=== PATIENT | male | born 1950 | race Caucasian/White ===

== ENCOUNTER 2016-09-14 22:57 | Inpatient (IN) | payer OTHER ==
[~2016-09-14] VITALS: Ht 152.4 cm; Wt 83.5 kg
[~2016-09-14 22:57] MED LIST: ALBU1AER9 INH; AMIT25TA9 PO; ASPCH81X PO; ATOR10TA82 PO; CLC100 PO; FENT12DI3 TD; FLUT0.15 INH; INSDGIPEN SC; INSU100I SC; LISI-461 PO; LORA10TA51 PO; METO25TA56 PO; OXYC-57 PO; POLY335019 PO; PRED1SUS3 OPR; SENN-61 PO; TIOTCAP INH
[2016-09-15] MEDS ORDERED: MoRPHine SULFATE 4 MG/ML 1 ML CARP\\VIAL IV STA ×2 (00:04→02:56)
[2016-09-15] MEDS ORDERED: ONDANSETRON INJ 2 MG/ML 2 ML VIAL IV STA (00:04)
[2016-09-15] MEDS ORDERED: SODIUM CHLORIDE 0.9% 1000ML 1,000 ML IV STA (00:04)
[2016-09-15] MEDS ORDERED: OPTIRAY 320 IV PRN (00:15)
[2016-09-15 00:43] LABS: BASO % 0.3 %; BASO ABS # 0.01 K/uL (0-0.2); COMPLETE YES; HEMATOCRIT 31.1 % (42-52); LYMPH % 14.2 %; LYMPH ABS # 0.56 K/uL (1.2-3.4); MEAN CELL VOLUME 96.3 fL (80-100); MEAN CORPUSCULAR HEMOGLOBIN 31.9 pg (25-34); MEAN CORPUSCULAR HGB CONC 33.1 g/dl (32-36); MEAN PLATELET VOLUME 10.1 fL (7.4-10.4); MONO % 13.7 %; NEUT % 70.8 %; PLATELET COUNT 233 K/uL (130-400); RED BLOOD COUNT 3.23 M/uL (4.7-6.1); WHITE BLOOD COUNT 3.93 K/uL (4.8-10.8)
[2016-09-15 00:55] LABS: INR 2.2 (0.9-1.1); PARTIAL THROMBOPLASTIN RATIO 1.2; PROTHROMBIN TIME (PATIENT) 24.4 SECONDS (9.0-12.0)
[2016-09-15 01:10] LABS: BUN/CREATININE RATIO 26.4 (10-20); CALCIUM 8.9 mg/dl (8.5-10.1); MAGNESIUM 2.2 mg/dl (1.8-2.4); POTASSIUM 3.8 mmol/L (3.5-5.1)
[2016-09-15 01:12] LABS: ALB/GLOB RATIO 0.9 (0.9-2)
[2016-09-15] MEDS ORDERED: POLYETHYLENE (MIRALAX) 17 GM PACK PO PRN (05:15)
[2016-09-15] MEDS ORDERED: ALUMINUM/MAGNESIUM/SIMETH (MAALOX MAX) 30 ML UDC PO PRN (05:15)
[2016-09-15] MEDS ORDERED: ONDANSETRON INJ 2 MG/ML 2 ML VIAL IV PRN (05:15)
[2016-09-15] MEDS ORDERED: ACETAMINOPHEN 325 MG TAB PO PRN (05:15)
--- NOTE | 2016-09-15 05:39 | History and Physical ---
History & Physical Date & Time of Service: Sep 15, 2016 at 05:21 Chief Complaint: B/L Leg Pain, Worse On Right Primary Care Physician: Eric Yepez M.D. History of Present Illness Source: patient, family 65 y/o M Hx met prostate CA, COPD, DM, AF . Pt developed pain and swelling in his RLE and presented for evaluation. AN ultrasound confirmed an extensive RLE DVT extending into the R femoral vein. He denies SOB above baseline or CP. The pt is on 3mg Coumadin daily and his INR is therapeutic at 2.2 at the time of admission. He states that he was recently in [place] having returned one week prior which may have placed him at further risk of DVT. It is unknown if his INR was subtherapeutic recently. The pts [place] is limited, family were present to translate at the time of admission. Past Medical/Surgical History Medical Problems: (1) Acute kidney injury Status: Resolved (2) Anemia Status: Chronic (3) COPD exacerbation Status: Resolved (4) Diabetes mellitus Status: Chronic (5) Emphysema lung Status: Chronic (6) Facial edema Status: Resolved (7) Hematuria Status: Resolved (8) Hypomagnesemia Status: Resolved (9) Metastatic cancer of the prostate Status: Chronic (10) Non-st elevation (nstemi) myocardial infarction Status: Resolved (11) Prostate cancer Permanent Comment: DIAGNOSIS: Metastatic prostate cancer to bone TREATMENT: 1. Previous history of radiation therapy done at other facilities for metastatic disease 2. Xofigo administration - 1/6 cycles completed. Status: Chronic (12) Prostate cancer metastatic to multiple sites Status: Chronic (13) Pyelonephritis Status: Resolved (14) Sepsis Status: Resolved (15) V-tach Status: Resolved 16) PAF Family History No pertinent family history COuld not provide details Social History Smoking Status: Former Smoker Drug Use: none Marital Status: Housing status: lives with family Occupational Status: retired Immunizations History of Influenza Vaccine: Yes History of Tetanus Vaccine?: UNKNOWN History of Pneumococcal: No History of Hepatitis B Vaccine: No Allergies Coded Allergies: No Known Allergies (Unverified , 09/14/16) Home Medications Scheduled Atorvastatin (Lipitor), 10 MG PO HS Insulin Glargine (Lantus Solostar), 20 UNITS SC BID Insulin Lispro (Human) (Humalog), 5 ML SC AC Lisinopril (Zestril), 10 MG PO DAILY Metoprolol Tartrate (Lopressor) (Lopressor), 25 MG PO QPM Metoprolol Tartrate (Lopressor) (Lopressor), 50 MG PO QAM Scheduled PRN Oxycodone/Acetaminophen 5MG/325MG (Percocet 5MG/325MG), 1 TABLETS PO Q4H PRN for Pain Polyethylene Glycol 3350 (Miralax), 17 GM PO BID PRN for Constipation Physical Exam Vital Signs Date Time Temp Pulse Resp B/P Pulse Ox O2 Delivery O2 Flow Rate FiO2 09/15/16 03:15 93 09/15/16 03:11 95 09/15/16 02:29 67 18 152/92 98 Room Air 09/15/16 00:15 97 Room Air 09/14/16 23:08 36.9 106 20 155/111 97 Room Air General Appearance: WD/WN, no apparent distress Head: normocephalic, atraumatic Eyes: normal inspection, PERRL, EOMI ENT: normal ENT inspection, pharynx normal Neck: supple, no JVD Respiratory/Chest: chest non-tender, lungs clear, normal breath sounds, no respiratory distress, no accessory muscle use Cardiovascular: no gallop, no JVD, no murmur, normal peripheral pulses, + irregularly irregular Abdomen/GI: normal bowel sounds, non tender, soft Back: normal inspection Extremities/Musculoskelatal: + pertinent finding (Mild RLE swelling without pitting) Neurologic/Psych: social research assistant II-XII nml as tested, no motor/sensory deficits, alert, normal mood/affect, normal reflexes, oriented x 3 Skin: normal color, warm/dry, no rash Diagnostics Laboratory Results Results Past 24 Hours Test 09/15/16 00:30 Range/Units White Blood Count 3.93 4.8-10.8 K/uL Red Blood Count 3.23 4.7-6.1 M/uL Hemoglobin 10.3 14.0-18.0 g/dL Hematocrit 31.1 42-52 % Mean Corpuscular Volume 96.3 80-100 fL Mean Corpuscular Hemoglobin 31.9 25-34 pg Mean Corpuscular Hemoglobin Concent 33.1 32-36 g/dl Platelet Count 233 130-400 K/uL Mean Platelet Volume 10.1 7.4-10.4 fL Neutrophils (%) (Auto) 70.8 % Lymphocytes (%) (Auto) 14.2 % Monocytes (%) (Auto) 13.7 % Eosinophils (%) (Auto) 1.0 % Basophils (%) (Auto) 0.3 % Neutrophils # (Auto) 2.78 1.4-6.5 K/uL Lymphocytes # (Auto) 0.56 1.2-3.4 K/uL Monocytes # (Auto) 0.54 0.11-0.59 K/uL Eosinophils # (Auto) 0.04 0-0.5 K/uL Basophils # (Auto) 0.01 0-0.2 K/uL RDW Standard Deviation 49.5 36.4-46.3 fL RDW Coefficient of Variation 14.0 11.5-14.5 % Immature Granulocyte % (Auto) 0.0 % Immature Granulocyte # (Auto) 0.00 0.00-0.02 K/uL Prothrombin Time 24.4 9.0-12.0 SECONDS Prothromb Time International Ratio 2.2 0.9-1.1 Activated Partial Thromboplast Time 29.9 21.0-31.0 SECONDS Partial Thromboplastin Ratio 1.2 Sodium Level 143 136-145 mmol/L Potassium Level 3.8 3.5-5.1 mmol/L Chloride Level 111 98-107 mmol/L Carbon Dioxide Level 24 21-32 mmol/L Anion Gap 8.0 3-11 mmol/L Blood Urea Nitrogen 26 7-18 mg/dl Creatinine 1.00 0.60-1.40 mg/dl Est Creatinine Clear Calc Drug Dose 82.5 ml/min Estimated GFR () 91.1 Estimated GFR (Non- 78.6 BUN/Creatinine Ratio 26.4 10-20 Random Glucose 210 70-99 mg/dl Calcium Level 8.9 8.5-10.1 mg/dl Magnesium Level 2.2 1.8-2.4 mg/dl Total Bilirubin 0.2 0.2-1 mg/dl Aspartate Amino Transf (AST/SGOT) 29 15-37 U/L Alanine Aminotransferase (ALT/SGPT) 18 12-78 U/L Alkaline Phosphatase 308 45-117 U/L Total Protein 6.9 6.4-8.2 gm/dl Albumin 3.3 3.4-5.0 gm/dl Globulin 3.6 2.5-4.0 gm/dl Albumin/Globulin Ratio 0.9 0.9-2 Diagnostic Radiology + RLE DVT - popliteal - extending into femoral Impression Assessment and Plan 65 y/o M Hx met prostate CA, COPD, DM, AF . Pt developed pain and swelling in his RLE and presented for evaluation. AN ultrasound confirmed an extensive RLE DVT extending into the R femoral vein. He denies SOB above baseline or CP. The pt is on 3mg Coumadin daily and his INR is therapeutic at 2.2 at the time of admission. He states that he was recently in [place] having returned one week prior which may have placed him at further risk of DVT. It is unknown if his INR was subtherapeutic recently. 1) DVT - possibly breakthrough due to underlying CA - it is difficult to discern how long the pt has been on Coumadin as he was not sure and it does not appear on his previous med list. We cannot know also if was recently subtherapeutic. We are expecting a call from his to provide additional details. We will place him on a Heparin infusion and consult hematology. 2) COPD - cont inhalers - no current exacerbation 3) DM - sliding scale provided 4) Prostate CA with bone mets - treated with chemo and previously radiation - f/ u with H/O Full code - full dose Heparin Total time for this admit including review of labs/meds/records/imaging - discussion with pt and ER MD - 38 min Level of Care Med/Surg Resuscitation Status FULL RESUSCITATION VTE Prophylaxis VTE Risk Assessment Done? Y/N: Yes Risk Level: High Given or contraindicated: Other Anticoagulation
[2016-09-15] MEDS ORDERED: DEXTROSE 50% 50 ML SYR IV PRN (06:45)
[2016-09-15] MEDS ORDERED: GLUCOSE 40% GEL 15 GM TUBE PO PRN (06:45)
[2016-09-15] MEDS ORDERED: GLUCOSE 10 TABS/TUBE PO PRN (06:45)
[2016-09-15] MEDS ORDERED: GLUCAGON FOR INJ 1 MG VIAL SQ PRN (06:45)
[2016-09-15 07:14] VITALS: BP 148/84; PULSE 94; TEMP 36.4; O2SAT 97; BMI 30.0
--- NOTE | 2016-09-15 07:22 | DIAGNOSTIC IMAGING REPORT ---
BILATERAL LOWER EXTREMITY VENOUS DOPPLER HISTORY: Leg pain - RIGHT greater than left COMPARISON STUDY: None. FINDINGS: Near occlusive thrombus within the right superficial femoral vein to the popliteal vein. The remaining bilateral lower extremity venous systems are patent. A complex 5.9 x 1.2 x 1.7 cm right popliteal cyst. IMPRESSION: 1. Right lower extremity DVT. 2. No DVT within the left lower extremity. Electronically signed by: Landon Whittington M.D. 09/15/2016 7:20 AM Dictated Date/Time: 09/15/2016 7:18 AM
--- NOTE | 2016-09-15 07:36 | EMERGENCY ROOM VISIT NOTE ---
History First contact with patient: 23:22 Chief Complaint: LEG PAIN,LEG INJURY Stated Complaint: DVT History of Present Illness The patient is a 65 year old male who presents to the Emergency Department by private vehicle with his family for evaluation of his bilateral lower extremity pain with focus to the RIGHT versus left leg. The patient has a significant past medical history for metastatic prostate cancer with large metastases to the lumbar spine. He was currently treated with chemotherapy as well as radiation therapy here. He followed with Dr. Drew and Dr. Zimmerman. Most recently, the patient traveled to [place] where he was treated with chemotherapy. Her returned approximately 3 weeks ago and has had progressively worsening pain to the bilateral lower extremities. He had worsening swelling to the RIGHT lower extremity today. He complains of pain to the RIGHT calf. He is worsening pain with range of motion. He denies any numbness or tingling to the toes. He rates his current discomfort as a 10/10. He has used his oral morphine as well as oxycodone without relief of symptoms. Patient denies any chest pain, palpitations, shortness of breath, abdominal pain, or history of DVT. Son is present and acts as wood shop teacher. Review of Systems A complete 10-point Review of Systems was discussed with the patient, with pertinent positives and negatives listed in the History of Present Illness. All remaining Review of Systems questions can be considered negative unless otherwise specified. Past Medical/Surgical History Medical Problems: (1) Acute kidney injury (2) Anemia (3) COPD exacerbation (4) Diabetes mellitus (5) DVT (deep venous thrombosis) (6) Emphysema lung (7) Facial edema (8) Hematuria (9) Hypomagnesemia (10) Metastatic cancer (11) Non-st elevation (nstemi) myocardial infarction (12) Prostate cancer (13) Prostate cancer metastatic to multiple sites (14) Pyelonephritis (15) Sepsis (16) V-tach Family History No pertinent family history Social History Smoking Status: Former Smoker Alcohol Use: none Drug Use: none Marital Status: Housing Status: lives with family Occupation Status: retired Current/Historical Medications Scheduled Atorvastatin (Lipitor), 10 MG PO HS Enoxaparin (Lovenox), 120 MG SQ DAILY Insulin Glargine (Lantus Solostar), 20 UNITS SC BID Insulin Lispro (Human) (Humalog), 5 ML SC AC Lisinopril (Zestril), 10 MG PO DAILY Metoprolol Tartrate (Lopressor) (Lopressor), 25 MG PO QPM Metoprolol Tartrate (Lopressor) (Lopressor), 50 MG PO QAM Warfarin Sod (Coumadin), 5 MG PO DAILY Scheduled PRN Oxycodone/Acetaminophen 5MG/325MG (Percocet 5MG/325MG), 1 TABLETS PO Q4H PRN for Pain Oxycodone/Acetaminophen 5MG/325MG (Percocet 5MG/325MG), 1 TABLET PO Q4H PRN for Pain Polyethylene (Miralax), 17 GM PO DAILY PRN for Constipation Polyethylene Glycol 3350 (Miralax), 17 GM PO BID PRN for Constipation Allergies Coded Allergies: No Known Allergies (Unverified , 09/14/16) Physical Exam Vital Signs Date Time Temp Pulse Resp B/P Pulse Ox O2 Delivery O2 Flow Rate FiO2 09/15/16 03:15 93 09/15/16 03:11 95 09/15/16 02:29 67 18 152/92 98 Room Air 09/15/16 00:15 97 Room Air 09/14/16 23:08 36.9 106 20 155/111 97 Room Air Pain Rating (0-10): 10 Physical Exam VITAL SIGNS - Vital signs and nursing notes were reviewed. GENERAL - 65-year-old male appearing his stated age who is in no acute distress. Communicates well with provider and answers questions appropriately. LUNGS - Chest wall symmetric without accessory muscle use, intercostals retractions, or central cyanosis. Normal vesicular breath sounds CTA B/L. No wheezes, rales, or rhonchi appreciated. CARDIAC - RRR with S1/S2. No murmur, rubs, or gallops appreciated. No reproducible tenderness to palpation appreciated over the anterior chest wall. ABDOMEN - Abdominal contour obese and without pulsations or visible masses. BS normoactive all four quadrants. No tenderness, palpable masses, hepatosplenomegaly, or ascites noted. BACK - no step-off deformities noted to the lumbar spinous processes. Mild tenderness to palpation noted to the mid lumbar paraspinal musculature. EXTREMITIES - Moderate pretibial edema present RIGHT greater than left. +3/5 radial and dorsalis pedis pulses palpated throughout. +4/5 strength noted in UE/ LE bilaterally. NEUROLOGIC - Cranial nerves II through XII grossly intact. Sensory intact to light touch throughout. PSYCH - Son acts as wood shop teacher. A&Ox3 and cooperates fully with examiner. Pt is very pleasant and interacts well with examiner. Medical Decision & Procedures ER Provider Diagnostic Interpretation: Radiological imaging and reports were reviewed by myself. Radiologist's Interpretation as follows: CT SCAN OF THE LUMBAR SPINE COMBO CLINICAL HISTORY: Low back pain. Prostate cancer history. COMPARISON STUDY: Nuclear bone scan dated 03/27/2015. Abdominal CT dated 03/27/2015. TECHNIQUE: Before and following the IV administration of 93 cc of Optiray 320, CT scan of the lumbar spine is performed from the lower thoracic spine to the sacrum. Images reviewed in the axial, sagittal, coronal planes. IV contrast was administered without complication. CT DOSE: 1551.57 mGy.cm FINDINGS: The skeletal structures are osteopenic. There is evidence of diffuse osteoblastic metastatic disease identified throughout all of the visualized osseous structures. This has not appreciably changed from the [address] scan. Vertebral body height and alignment are maintained. There is no evidence of pathologic fracture throughout the visualized structures. There is a right-sided pars defect at L5. The transverse and spinous processes appear intact. The intervertebral disc spaces appear preserved. There is a large disc herniation identified at L2-L3. This causes severe acquired compromise of the central canal. There is also a large posterior disc bulge at L5-S1 that is eccentric to the right. There is no evidence of tumor encroaching upon the central canal. The paraspinous soft tissues are normal as imaged. There is asymmetric cortical atrophy of the left kidney as compared to the right. A 5.5 cm cyst arises from the upper pole of the left kidney. Additional smaller cysts are noted bilaterally. No retroperitoneal lymphadenopathy is identified. Tortuous venous structures are present in the retrocrural space. There is moderate atherosclerotic calcification of the abdominal aorta. The visualized sacrum and bony pelvis are intact. IMPRESSION: 1. Findings are consistent with diffuse/widespread osteoblastic metastatic disease. This is not appreciably changed in distribution from the 03/27/2015 examination. 2. There is a disc herniation at L2-L3 which causes significant acquired compromise of the central canal. 3. There is no evidence of pathologic fracture. 4. Additional findings as above. BILATERAL LOWER EXTREMITY VENOUS DOPPLER HISTORY: Leg pain - RIGHT greater than left COMPARISON STUDY: None. FINDINGS: Near occlusive thrombus within the right superficial femoral vein to the popliteal vein. The remaining bilateral lower extremity venous systems are patent. A complex 5.9 x 1.2 x 1.7 cm right popliteal cyst. IMPRESSION: 1. Right lower extremity DVT. 2. No DVT within the left lower extremity. Laboratory Results 09/15/16 00:30 Test 09/15/16 00:30 Anion Gap 8.0 mmol/L (3-11) BUN/Creatinine Ratio 26.4 (10-20) Calcium Level 8.9 mg/dl (8.5-10.1) Magnesium Level 2.2 mg/dl (1.8-2.4) Total Bilirubin 0.2 mg/dl (0.2-1) Aspartate Amino Transf (AST/SGOT) 29 U/L (15-37) Alanine Aminotransferase (ALT/SGPT) 18 U/L (12-78) Alkaline Phosphatase 308 U/L (45-117) Total Protein 6.9 gm/dl (6.4-8.2) Albumin 3.3 gm/dl (3.4-5.0) Globulin 3.6 gm/dl (2.5-4.0) Albumin/Globulin Ratio 0.9 (0.9-2) Medications Administered Medications (Trade) Dose Ordered Sig/Derek Route Start Time Stop Time Status Last Admin Dose Admin Sodium Chloride (Nss 1000ml) 1,000 ml @ 125 mls/hr Q8H STAT IV 09/15/16 00:04 09/15/16 06:26 DC 09/15/16 00:42 125 MLS/HR Morphine Sulfate (MoRPHine SULFATE INJ) 4 mg NOW STAT IV 09/15/16 00:04 09/15/16 00:08 DC 09/15/16 00:41 4 MG Ondansetron HCl (Zofran Inj) 4 mg NOW STAT IV 09/15/16 00:04 09/15/16 00:08 DC 09/15/16 00:41 4 MG Morphine Sulfate (MoRPHine SULFATE INJ) 4 mg NOW STAT IV 09/15/16 02:56 09/15/16 02:57 DC 09/15/16 03:06 4 MG ED Course Patient was seen and evaluated by myself. Labs were drawn, saline lock in place. The patient was hydrated with normal saline. He received 4 mg morphine and 4 mg Zofran intravenously for pain. Ultrasounds of the bilateral lower extremities were obtained. CT of the lumbar spine with and without contrast was ordered. Laboratory results demonstrate mild leukopenia. The patient isn' t anemic. There are no significant electrolyte abnormalities. Alkaline phosphatase is elevated. Ultrasound consistent with acute extensive DVT. CT demonstrates the above-mentioned findings. The patient's pain was controlled with additional 4 mg morphine. Case was discussed with hospitalist who agrees to admit the patient for further evaluation and management. Patient admitted in stable. Medical Decision Given the patient's presentation and stated complaints, I did elect to perform the above-mentioned workup. The patient presents with worsening pain to the RIGHT lower extremity. He is had recent travel. He has a significant history of prostate cancer as well. The patient has an acute extensive DVT to the RIGHT lower extremity. This is especially concerning as the patient is currently anticoagulated with Coumadin and his INR is therapeutic. His pain was adequately controlled the emergency department. He will be admitted to hospitalist service for further evaluation and management. Patient admitted in stable condition. In the evaluation and treatment of this patient, the following differential diagnoses were considered: Cellulitis, lumbar radiculopathy, worsening CVA, PAD , amongst others. Impression Primary Impression: Deep vein thrombosis Departure Information Dispostion Admitted as an inpatient Condition FAIR Prescriptions Oxycodone/Acetaminophen 5MG/325MG (PERCOCET 5MG/325MG) Tab 1 TABLET PO Q4H Y for Pain, #30 TAB PAIN Prov: Lili Rivera MD 09/21/16 Warfarin Sod (Coumadin) 5 Mg Tab 5 MG PO DAILY for 30 Days, #30 TABS Prov: Conner Thompson D.O. 09/21/16 Polyethylene (Miralax) 17 Gm Pow 17 GM PO DAILY Y for Constipation, #30 PKT Prov: Conner Thompson D.O. 09/21/16 Enoxaparin (LOVENOX) 120 Mg/0.8 Ml Inj 120 MG SQ DAILY for 3 Days, #3 VIAL Prov: Conner Thompson D.O. 09/21/16 Referrals Eric Yepez M.D. (PCP) Forms HOME CARE DOCUMENTATION FORM, IMPORTANT VISIT INFORMATION Patient Instructions [facility] Problem Qualifiers Primary Impression: Deep vein thrombosis DVT location: lower extremity Affected thrombotic vein of extremity: unspecified lower extremity distal vein Laterality: right Chronicity: acute Qualified Codes: I82.4Z1 - Acute embolism and thrombosis of unspecified deep veins of right distal lower extremity
[2016-09-15 08:06] VITALS: BP 105/67; PULSE 101; TEMP 36.3; O2SAT 95
--- NOTE | 2016-09-15 08:24 | DIAGNOSTIC IMAGING REPORT ---
CT SCAN OF THE LUMBAR SPINE COMBO CLINICAL HISTORY: Low back pain. Prostate cancer history. COMPARISON STUDY: Nuclear bone scan dated 03/27/2015. Abdominal CT dated 03/27/2015. TECHNIQUE: Before and following the IV administration of 93 cc of Optiray 320, CT scan of the lumbar spine is performed from the lower thoracic spine to the sacrum. Images reviewed in the axial, sagittal, coronal planes. IV contrast was administered without complication. CT DOSE: 1551.57 mGy.cm FINDINGS: The skeletal structures are osteopenic. There is evidence of diffuse osteoblastic metastatic disease identified throughout all of the visualized osseous structures. This has not appreciably changed from the [address] scan. Vertebral body height and alignment are maintained. There is no evidence of pathologic fracture throughout the visualized structures. There is a right-sided pars defect at L5. The transverse and spinous processes appear intact. The intervertebral disc spaces appear preserved. There is a large disc herniation identified at L2-L3. This causes severe acquired compromise of the central canal. There is also a large posterior disc bulge at L5-S1 that is eccentric to the right. There is no evidence of tumor encroaching upon the central canal. The paraspinous soft tissues are normal as imaged. There is asymmetric cortical atrophy of the left kidney as compared to the right. A 5.5 cm cyst arises from the upper pole of the left kidney. Additional smaller cysts are noted bilaterally. No retroperitoneal lymphadenopathy is identified. Tortuous venous structures are present in the retrocrural space. There is moderate atherosclerotic calcification of the abdominal aorta. The visualized sacrum and bony pelvis are intact. IMPRESSION: 1. Findings are consistent with diffuse/widespread osteoblastic metastatic disease. This has not appreciably changed in distribution from the 03/27/2015 examination. 2. There is a disc herniation at L2-L3 which causes significant acquired compromise of the central canal. 3. There is no evidence of pathologic fracture. 4. Additional findings as above. Dictated: 09/15/2016 7:23 AM Transcribed: 09/15/2016 8:23 AM [facility] Electronically signed by: Eros Segovia M.D. 09/15/2016 8:29 AM Dictated Date/Time: 09/15/2016 7:23 AM
[2016-09-15] MEDS: INSULIN ASPART 100 UNITS/ML 3 ML PEN SC SCH ×4 (08:27→19:49)
[2016-09-15] MEDS: LISINOPRIL 10 MG TAB PO SCH (09:47)
[2016-09-15] MEDS: METOPROLOL TARTRATE 50 MG TAB PO SCH (09:47)
[2016-09-15] MEDS: MAGNESIUM HYDROXIDE SUSP 30 ML UDC PO PRN (09:50)
[2016-09-15] MEDS: INSULIN GLARGINE SOLOSTAR 100 UNITS/ML 3 ML PEN SC SCH ×2 (09:52→19:53)
[2016-09-15] MEDS: HEPARIN 25,000 UNIT/500ML D5W 500 ML IV PRN ×2 (09:55→17:30)
[2016-09-15 16:22] VITALS: BP 131/83; PULSE 85; TEMP 36.4; O2SAT 97
[2016-09-15 16:26] LABS: PARTIAL THROMBOPLASTIN RATIO 2.8
--- NOTE | 2016-09-15 16:48 | Oncology Consultation ---
Oncology/Heme Consultation Date of Consultation: Sep 15, 2016. Attending Physician: Yehuda Macario MD Reason for Consultation: History of prostate carcinoma DVT History of Present Illness is a 65-year-old [place] that is known to our clinic. He was last seen in our clinic in September of last year. Our records reflect that he has a history of prostate carcinoma that dates back a number of years. I records reflect that in fact he was diagnosed 15 years ago. At diagnosis or shortly afterwards he had a prostatectomy and orchiectomy. He had a disease-free interval until 2010. His PSA was quite high and he was placed on anti-hormonal therapy. He has been on various anti-hormonal therapies for quite some time. When last seen in our clinic he was treated with repeated courses of Taxotere and was headed for treatment with radium. His disease from what I recall was primarily if not entirely bone oriented. He is a difficult historian due to language barriers but he states that recently he had trouble moving his legs and he received radiation therapy well and [place]. He recalls I believe finishing the irradiation about 3 weeks ago. [place] is now [place]. He complained of leg discomfort and was found to have a DVT. He has been on Coumadin but was mildly subtherapeutic with an INR of 2.2. From what I can gather he is now here to stay in [place] with relatives. He states he has been receiving some form of chemotherapy well and [place] up until the time of receiving radiation therapy. He is uncertain as to what that might have been. Family History No pertinent family history Social History Smoking Status: Former Smoker Drug Use: none Marital Status: Housing Status: lives with family Occupation Status: retired Allergies Coded Allergies: No Known Allergies (Unverified , 09/14/16) Home Medications Scheduled Atorvastatin (Lipitor), 10 MG PO HS Insulin Glargine (Lantus Solostar), 20 UNITS SC BID Insulin Lispro (Human) (Humalog), 5 ML SC AC Lisinopril (Zestril), 10 MG PO DAILY Metoprolol Tartrate (Lopressor) (Lopressor), 25 MG PO QPM Metoprolol Tartrate (Lopressor) (Lopressor), 50 MG PO QAM Scheduled PRN Oxycodone/Acetaminophen 5MG/325MG (Percocet 5MG/325MG), 1 TABLETS PO Q4H PRN for Pain Polyethylene Glycol 3350 (Miralax), 17 GM PO BID PRN for Constipation Current Inpatient Medications Current Inpatient Medications Medications (Trade) Dose Ordered Sig/Derek Route Start Time Stop Time Status Last Admin Dose Admin Ioversol (Optiray 320) 100 ml UD PRN IV 09/15/16 00:15 09/19/16 00:14 Atorvastatin Calcium (Lipitor Tab) 10 mg HS PO 09/15/16 21:00 10/15/16 20:59 Insulin Glargine (Lantus Solostar Pen) 20 unit BID SC 09/15/16 08:00 10/15/16 08:59 09/15/16 09:52 20 UNIT Lisinopril (Zestril Tab) 10 mg DAILY PO 09/15/16 08:00 10/15/16 08:59 09/15/16 09:47 10 MG Metoprolol Tartrate (Lopressor Tab) 25 mg QPM PO 09/15/16 21:00 10/15/16 20:59 Metoprolol Tartrate (Lopressor Tab) 50 mg QAM PO 09/15/16 08:00 10/15/16 08:59 09/15/16 09:47 50 MG Oxycodone/ Acetaminophen (Percocet 5-325mg Tab) 1 tab Q4H PRN PO 09/15/16 05:15 09/29/16 05:14 Acetaminophen (Tylenol Tab) 650 mg Q4H PRN PO 09/15/16 05:15 10/15/16 05:14 Al Hydrox/Mg Hydrox/Simethicone (Maalox Max Susp) 15 ml Q4H PRN PO 09/15/16 05:15 10/15/16 05:14 Magnesium Hydroxide (Milk Of Magnesia Susp) 30 ml Q6H PRN PO 09/15/16 05:15 10/15/16 05:14 09/15/16 09:50 30 ML Polyethylene (Miralax Powder Packet) 17 gm DAILY PRN PO 09/15/16 05:15 10/15/16 05:14 Zolpidem Tartrate (Ambien Tab) 5 mg HSZ PRN PO 09/15/16 05:15 10/15/16 05:14 Ondansetron HCl (Zofran Inj) 4 mg Q6H PRN IV 09/15/16 05:15 10/15/16 05:14 Insulin Aspart (novoLOG ASPART) SLIDING SCALE G... ACHS SC 09/15/16 06:30 10/15/16 06:59 09/15/16 13:46 1 UNITS Glucose (Glucose 40% Gel) 15-30 GRAMS 15 GRAMS... UD PRN PO 09/15/16 06:45 10/15/16 06:44 Glucose (Glucose Chew Tab) 4-8 Tablets 4 Tabl... UD PRN PO 09/15/16 06:45 10/15/16 06:44 Dextrose (Dextrose 50% 50ML Syringe) 25-50ML OF 50% DW IV FOR... UD PRN IV 09/15/16 06:45 10/15/16 06:44 Glucagon 1 mg 1 mg UD PRN SQ 09/15/16 06:45 10/15/16 06:44 Heparin Sodium/ Dextrose (Heparin 25,000 Unit/500ml D5W) 500 ml @ 29 mls/hr [id number] PRN IV 09/15/16 09:30 10/15/16 09:29 09/15/16 09:55 29 MLS/HR Review of Systems It is difficult to extract what would be considered an accurate review of systems due to language barrier Constitutional: Negative for weight loss, night sweats, or fever Eyes: Negative for event change of vision ENT: Negative for epistaxis, nasal discharge, sore throat, or deafness Cardiovascular: Negative for chest pain, palpitations, dizziness, diaphoresis Respiratory: Negative for new shortness of breath,hemoptysis, or purulent cough Gastrointestinal: Negative for diarrhea, hematemesis, melena, nausea, vomiting , or dyspepsia Integumentary (skin): Negative for rash or jaundice discoloration Genitourinary: Negative for urinary frequency, hematuria, or dysuria Neurological: Negative for weakness, seizure activity, headache, or dizziness Lymphatic/Hematologic: Negative for petechiae, bleeding or new adenopathy Musculoskeletal: Negative for new joint or back pain Allergic/Immunologic: Negative for unusual rash or pruritis. Physical Exam Date Time Temp Pulse Resp B/P Pulse Ox O2 Delivery O2 Flow Rate FiO2 09/15/16 16:22 36.4 85 20 131/83 97 Room Air 4/13/17 15:56 Room Air 09/15/16 09:50 Room Air 09/15/16 08:06 36.3 101 20 105/67 95 Room Air 09/15/16 07:14 36.4 94 16 148/84 97 Room Air 09/15/16 06:16 78 22 139/89 96 09/15/16 03:15 93 09/15/16 03:11 95 09/15/16 02:29 67 18 152/92 98 Room Air 09/15/16 00:15 97 Room Air 09/14/16 23:08 36.9 106 20 155/111 97 Room Air Constitutional: vitals are stable. Eyes: Eyes are FRANNY EOMI without conjuctival erythema or icterus. ENT: External examination was negative for masses. Neck: Negative for masses or palpable thyromegaly Respiratory: Lung sounds were generally clear bilaterally Cardiovascular: Heart was RRR without significant murmur, gallops aoe rubs Gastrointestinal: No palpable hepatic or splenomegaly. The abdomen was soft with normal bowel sounds. Lymphatic system: there was no palpable peripheral lymphadenopathy Musculoskeletal System: The musculoskeletal system seemed concordant with age. Skin: The skin was negative for jaundice. Neurologic exam: The exam was negative for any focal findings. His toes are downgoing although he did have some difficulty moving his lower extremities, nevertheless he was able to move them. Psychiatric exam: Was essentially negative with normal mood and effect. Extremities: Negative for edema or erythema Laboratory Results Last 24 Hours Test 09/15/16 00:30 09/15/16 06:33 09/15/16 07:53 09/15/16 11:32 White Blood Count 3.93 K/uL Red Blood Count 3.23 M/uL Hemoglobin 10.3 g/dL Hematocrit 31.1 % Mean Corpuscular Volume 96.3 fL Mean Corpuscular Hemoglobin 31.9 pg Mean Corpuscular Hemoglobin Concent 33.1 g/dl Platelet Count 233 K/uL Mean Platelet Volume 10.1 fL Neutrophils (%) (Auto) 70.8 % Lymphocytes (%) (Auto) 14.2 % Monocytes (%) (Auto) 13.7 % Eosinophils (%) (Auto) 1.0 % Basophils (%) (Auto) 0.3 % Neutrophils # (Auto) 2.78 K/uL Lymphocytes # (Auto) 0.56 K/uL Monocytes # (Auto) 0.54 K/uL Eosinophils # (Auto) 0.04 K/uL Basophils # (Auto) 0.01 K/uL RDW Standard Deviation 49.5 fL RDW Coefficient of Variation 14.0 % Immature Granulocyte % (Auto) 0.0 % Immature Granulocyte # (Auto) 0.00 K/uL Prothrombin Time 24.4 SECONDS Prothromb Time International Ratio 2.2 Activated Partial Thromboplast Time 29.9 SECONDS Partial Thromboplastin Ratio 1.2 Sodium Level 143 mmol/L Potassium Level 3.8 mmol/L Chloride Level 111 mmol/L Carbon Dioxide Level 24 mmol/L Anion Gap 8.0 mmol/L Blood Urea Nitrogen 26 mg/dl Creatinine 1.00 mg/dl Est Creatinine Clear Calc Drug Dose 82.5 ml/min Estimated GFR () 91.1 Estimated GFR (Non- 78.6 BUN/Creatinine Ratio 26.4 Random Glucose 210 mg/dl Calcium Level 8.9 mg/dl Magnesium Level 2.2 mg/dl Total Bilirubin 0.2 mg/dl Aspartate Amino Transf (AST/SGOT) 29 U/L Alanine Aminotransferase (ALT/SGPT) 18 U/L Alkaline Phosphatase 308 U/L Total Protein 6.9 gm/dl Albumin 3.3 gm/dl Globulin 3.6 gm/dl Albumin/Globulin Ratio 0.9 Bedside Glucose 91 mg/dl 155 mg/dl 169 mg/dl Test 09/15/16 15:53 Assessment & Plan 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 I believe he should be treated with Lovenox perhaps one and a half milligrams per kilogram SQ daily going forward. I tried to reach his [id number] who in the past has been a great source as to how he is been treated in [place]. She is also served as a good communicator to this patient. It's unclear as to what medicine he may have been receiving as chemotherapy recently in [place]. However it is certainly clear that he has received a number of treatments both antiandrogen as well as traditional systemic therapy with little doubt that his disease has progressed. He would be a candidate I believe for hospice. I tried to explain this to Mr. Li with little success and hopefully his [id number] relatives (that he now lives with here in [place]) will be helpful with that message. I will just check a PSA as well as an LDH. Again I believe would be warranted to place him on therapeutic doses of Lovenox perhaps 1 1/2 mg daily (lifelong) as his anticoagulant..
[2016-09-15] MEDS: ATORVASTATIN 10 MG TAB PO SCH (19:51)
[2016-09-15] MEDS: METOPROLOL TARTRATE 25 MG TAB PO SCH (19:52)
[2016-09-15] MEDS: ZOLPIDEM TARTRATE 5 MG TAB PO PRN (23:21)
[2016-09-15] MEDS: OXYCODONE/ACETAMINOPHEN 5-325 TAB PO PRN (23:21)
[2016-09-15 23:50] LABS: PARTIAL THROMBOPLASTIN RATIO 3.3
[2016-09-16 00:08] VITALS: BP 109/73; PULSE 82; TEMP 36.3; O2SAT 95
[2016-09-16] MEDS: HEPARIN 25,000 UNIT/500ML D5W 500 ML IV PRN (00:49)
[2016-09-16 04:36] VITALS: BP 122/82; PULSE 83; TEMP 36.6; O2SAT 97
[2016-09-16] MEDS: INSULIN ASPART 100 UNITS/ML 3 ML PEN SC SCH ×4 (06:30→20:53)
[2016-09-16 06:31] VITALS: BMI 27.8
[2016-09-16 07:18] LABS: BASO % 0.3 %; BASO ABS # 0.01 K/uL (0-0.2); COMPLETE YES; EOS % 1.8 %; HEMATOCRIT 30.7 % (42-52); LYMPH % 16.8 %; LYMPH ABS # 0.65 K/uL (1.2-3.4); MEAN CELL VOLUME 95.3 fL (80-100); MEAN CORPUSCULAR HEMOGLOBIN 31.4 pg (25-34); MEAN CORPUSCULAR HGB CONC 32.9 g/dl (32-36); MEAN PLATELET VOLUME 10.3 fL (7.4-10.4); MONO % 9.8 %; NEUT % 71.3 %; PLATELET COUNT 231 K/uL (130-400); RED BLOOD COUNT 3.22 M/uL (4.7-6.1); WHITE BLOOD COUNT 3.88 K/uL (4.8-10.8)
[2016-09-16 07:45] LABS: PARTIAL THROMBOPLASTIN RATIO 2.5
[2016-09-16] MEDS: METOPROLOL TARTRATE 50 MG TAB PO SCH (08:37)
[2016-09-16] MEDS: LISINOPRIL 10 MG TAB PO SCH (08:37)
[2016-09-16] MEDS: INSULIN GLARGINE SOLOSTAR 100 UNITS/ML 3 ML PEN SC SCH ×2 (09:01→20:53)
[2016-09-16] MEDS ORDERED: ENOXAPARIN 1.5 MG/KG SQ ONE (10:22)
--- NOTE | 2016-09-16 10:48 | Hematology/Oncology Prog Note ---
Hematology/Onc Progress Note Date of Service Sep 16, 2016. Diagnoses Progressive refractory castrate resistant prostate carcinoma Medications Medications Administered Medications (Trade) Dose Ordered Sig/Derek Route Start Time Stop Time Status Last Admin Dose Admin Sodium Chloride (Nss 1000ml) 1,000 ml @ 125 mls/hr Q8H STAT IV 09/15/16 00:04 09/15/16 06:26 DC 09/15/16 00:42 125 MLS/HR Morphine Sulfate (MoRPHine SULFATE INJ) 4 mg NOW STAT IV 09/15/16 00:04 09/15/16 00:08 DC 09/15/16 00:41 4 MG Ondansetron HCl (Zofran Inj) 4 mg NOW STAT IV 09/15/16 00:04 09/15/16 00:08 DC 09/15/16 00:41 4 MG Morphine Sulfate (MoRPHine SULFATE INJ) 4 mg NOW STAT IV 09/15/16 02:56 09/15/16 02:57 DC 09/15/16 03:06 4 MG Atorvastatin Calcium (Lipitor Tab) 10 mg HS PO 09/15/16 21:00 10/15/16 20:59 09/15/16 19:51 10 MG Insulin Glargine (Lantus Solostar Pen) 20 unit BID SC 09/15/16 08:00 10/15/16 08:59 09/16/16 09:01 20 UNIT Lisinopril (Zestril Tab) 10 mg DAILY PO 09/15/16 08:00 10/15/16 08:59 09/16/16 08:37 10 MG Metoprolol Tartrate (Lopressor Tab) 25 mg QPM PO 09/15/16 21:00 10/15/16 20:59 09/15/16 19:52 25 MG Metoprolol Tartrate (Lopressor Tab) 50 mg QAM PO 09/15/16 08:00 10/15/16 08:59 09/16/16 08:37 50 MG Oxycodone/ Acetaminophen (Percocet 5-325mg Tab) 1 tab Q4H PRN PO 09/15/16 05:15 09/29/16 05:14 09/15/16 23:21 1 TAB Magnesium Hydroxide (Milk Of Magnesia Susp) 30 ml Q6H PRN PO 09/15/16 05:15 5/13/17 05:14 09/15/16 09:50 30 ML Zolpidem Tartrate (Ambien Tab) 5 mg HSZ PRN PO 09/15/16 05:15 10/15/16 05:14 09/15/16 23:21 5 MG Insulin Aspart SLIDING SCALE G... ACHS SC 09/15/16 06:30 10/15/16 06:59 09/15/16 13:46 1 UNITS Heparin Sodium/ Dextrose (Heparin 25,000 Unit/500ml D5W) 500 ml @ 24 mls/hr [id number] PRN IV 09/15/16 09:30 09/16/16 10:22 DC 09/16/16 00:49 27 MLS/HR Subjective He denies any new symptoms. Pain seems fairly well under control. Review of Systems: A complete review of systems is difficult to obtain due to language barrier Constitutional: Negative for, night sweats, or fever Eyes: Negative for event change of vision ENT: Negative for epistaxis, nasal discharge, sore throat, or deafness Cardiovascular: Negative for chest pain, palpitations, dizziness, diaphoresis Respiratory: Negative for new shortness of breath,hemoptysis, or purulent cough Gastrointestinal: Negative for diarrhea, hematemesis, melena, nausea, vomiting , or dyspepsia Integumentary (skin): Negative for rash or jaundice discoloration Genitourinary: Negative for urinary frequency, hematuria, or dysuria Neurological: Negative for weakness, seizure activity, headache, or dizziness Lymphatic/Hematologic: Negative for petechiae, bleeding or new adenopathy Musculoskeletal: Negative for new joint or back pain Allergic/Immunologic: Negative for unusual rash or pruritis. Vital Signs Vital Signs Past 12 Hours Date Time Temp Pulse Resp B/P Pulse Ox O2 Delivery O2 Flow Rate FiO2 09/16/16 08:00 Room Air 09/16/16 04:36 36.6 83 20 122/82 97 Room Air 09/16/16 00:08 36.3 82 18 109/73 95 Room Air 09/16/16 00:00 Room Air Physical Exam Constitutional: vitals are stable. Eyes: Eyes are FRANNY EOMI without conjuctival erythema or icterus. ENT: External examination was negative for masses. Neck: Negative for masses or palpable thyromegaly Respiratory: Lung sounds were generally clear bilaterally Cardiovascular: Heart was RRR without significant murmur, gallops aoe rubs Gastrointestinal: No palpable hepatic or splenomegaly. The abdomen was soft with normal bowel sounds. Lymphatic system: there was no palpable peripheral lymphadenopathy Musculoskeletal System: The musculoskeletal system seemed concordant with age. Skin: The skin was negative for jaundice. Neurologic exam: He is able to move his lower extremities although they do appear weak. Psychiatric exam: Was essentially negative with normal mood and effect. Extremities: Negative for edema Laboratory Last 24 Hours Test 09/15/16 11:32 09/15/16 15:53 09/15/16 16:38 09/15/16 17:35 Bedside Glucose 169 mg/dl 129 mg/dl Activated Partial Thromboplast Time 73.4 SECONDS Partial Thromboplastin Ratio 2.8 Lactate Dehydrogenase 270 U/L Prostate Specific Antigen 3190.000 ng/ml Test 09/15/16 19:43 09/15/16 23:11 09/16/16 06:35 09/16/16 08:41 Bedside Glucose 153 mg/dl 142 mg/dl Activated Partial Thromboplast Time 86.7 SECONDS 66.1 SECONDS Partial Thromboplastin Ratio 3.3 2.5 White Blood Count 3.88 K/uL Red Blood Count 3.22 M/uL Hemoglobin 10.1 g/dL Hematocrit 30.7 % Mean Corpuscular Volume 95.3 fL Mean Corpuscular Hemoglobin 31.4 pg Mean Corpuscular Hemoglobin Concent 32.9 g/dl Platelet Count 231 K/uL Mean Platelet Volume 10.3 fL Neutrophils (%) (Auto) 71.3 % Lymphocytes (%) (Auto) 16.8 % Monocytes (%) (Auto) 9.8 % Eosinophils (%) (Auto) 1.8 % Basophils (%) (Auto) 0.3 % Neutrophils # (Auto) 2.77 K/uL Lymphocytes # (Auto) 0.65 K/uL Monocytes # (Auto) 0.38 K/uL Eosinophils # (Auto) 0.07 K/uL Basophils # (Auto) 0.01 K/uL RDW Standard Deviation 48.4 fL RDW Coefficient of Variation 13.8 % Immature Granulocyte % (Auto) 0.0 % Immature Granulocyte # (Auto) 0.00 K/uL Assessment & Plan Castrate resistant refractory progressive prostate carcinoma. His PSA is now over 3000. Last year around this time it was recorded at around 600. He has had many courses of various chemotherapy regimens as well as anti-androgen therapy. He's also had radiation treatments. No further systemic therapy is planned or will be helpful. This is the message that I gave to him today. I believe palliative consult should be done and eventually hospice placement. I have been trying to reach his [id number] both yesterday and today to review this. I' m never quite sure when I speak with the patient as to whether he understands. He is always wanted further therapy but my message today had to be that there was really no further therapy beyond just supportive care. Would make the transition however to once daily Lovenox (1.5 mg/kg per day) and away from IV heparin. He will need to be on this lifelong. I will continue to try to reach the relatives who live close by. Please consult palliative care. Please note we had a follow-up conversation a family conference at 7 PM this evening. The son reviewed with me his father's story in regards to his deep venous thrombosis. He also reviewed to some extent his father's history of prostate cancer. I then stated that his disease has clearly progressed. I pointed out that the problem that led to trouble walking and required radiation to his lower back was indicative of progression of disease. I stated that the PSA that we just did is about 5 times higher than where we left off in September of last year. Fortunately pain has not been an issue. I stressed repeatedly in a very angela way that further chemotherapy would not be helpful and more damaging. I believe the son and his understand. I'm not certain however that the patient understands. I recommended hospice in described that service to them. They seemed reluctant to proceed with hospice but at least palliative care should be involved and I believe that some sort of age at home will be necessary. The patient apparently ambulates around the house with the aid of a walker but I stressed that this is about as good as it is going to be and there will be a gradual decline. The idea of an IVC filter was discussed in I believe that an insertion of an IV filter would be warranted at this juncture. They recalled his PSA responding to radiation treatments from last year (he previously received from here [email or web address]). I stated that I doubt that that would be very helpful at this juncture but we will last Dr. Chichi Zimmerman to comment. In summary we will ask for an IVC filter placement (Dr. Birch). The patient will be placed on one a day Lovenox at 1.5 mg/kg SQ. Dr. Chichi Zimmerman will be consulted to see if it would be reasonable or even possible to retreat with radium. No further systemic chemotherapy is planned. Palliative consult will be placed in anticipation of hospice care in the near future.
[2016-09-16] MEDS ORDERED: ENOXAPARIN 150 MG/1ML SYR SQ SCH (11:00)
[2016-09-16 16:18] VITALS: BP 117/79; PULSE 65; TEMP 36.4; O2SAT 98
[2016-09-16 19:57] VITALS: BP 119/77; PULSE 79; TEMP 36.7; O2SAT 94
[2016-09-16] MEDS: ZOLPIDEM TARTRATE 5 MG TAB PO PRN (20:47)
[2016-09-16] MEDS: ATORVASTATIN 10 MG TAB PO SCH (20:48)
[2016-09-16] MEDS: METOPROLOL TARTRATE 25 MG TAB PO SCH (20:48)
[2016-09-16] MEDS: OXYCODONE/ACETAMINOPHEN 5-325 TAB PO PRN (20:48)
--- NOTE | 2016-09-16 21:12 | Hospitalist Progress Note ---
Hospitalist Progress Note Date of Service Sep 16, 2016. Subjective case reviewed in great detail with his son and daughter in law at bedside. His clot is probably not new, or acute on chronic disease. He had a DVT in [place] prior to coming. Patient has no complaints today. Objective Vital Signs Date Time Temp Pulse Resp B/P Pulse Ox O2 Delivery O2 Flow Rate FiO2 09/16/16 19:57 36.7 79 18 119/77 94 Room Air 09/16/16 16:18 36.4 65 18 117/79 98 Room Air 09/16/16 16:00 Room Air 09/16/16 08:00 Room Air 09/16/16 04:36 36.6 83 20 122/82 97 Room Air 09/16/16 00:08 36.3 82 18 109/73 95 Room Air 09/16/16 00:00 Room Air Physical Exam General Appearance: no apparent distress Eyes: normal inspection Neck: trachea midline Respiratory/Chest: lungs clear Cardiovascular: regular rate, rhythm Abdomen: normal bowel sounds Neurologic/Psychiatric: alert Laboratory Results Last 24 Hours Test 09/15/16 23:11 09/16/16 06:35 09/16/16 08:41 09/16/16 11:58 Activated Partial Thromboplast Time 86.7 SECONDS 66.1 SECONDS Partial Thromboplastin Ratio 3.3 2.5 White Blood Count 3.88 K/uL Red Blood Count 3.22 M/uL Hemoglobin 10.1 g/dL Hematocrit 30.7 % Mean Corpuscular Volume 95.3 fL Mean Corpuscular Hemoglobin 31.4 pg Mean Corpuscular Hemoglobin Concent 32.9 g/dl Platelet Count 231 K/uL Mean Platelet Volume 10.3 fL Neutrophils (%) (Auto) 71.3 % Lymphocytes (%) (Auto) 16.8 % Monocytes (%) (Auto) 9.8 % Eosinophils (%) (Auto) 1.8 % Basophils (%) (Auto) 0.3 % Neutrophils # (Auto) 2.77 K/uL Lymphocytes # (Auto) 0.65 K/uL Monocytes # (Auto) 0.38 K/uL Eosinophils # (Auto) 0.07 K/uL Basophils # (Auto) 0.01 K/uL RDW Standard Deviation 48.4 fL RDW Coefficient of Variation 13.8 % Immature Granulocyte % (Auto) 0.0 % Immature Granulocyte # (Auto) 0.00 K/uL Bedside Glucose 142 mg/dl 142 mg/dl Test 09/16/16 17:00 09/16/16 20:32 Bedside Glucose 105 mg/dl 106 mg/dl Assessment and Plan (1) Prostate cancer metastatic to multiple sites Assessment & Plan: Family meeting conducted with patient's son, daughter in law and the patient with Dr. Drew. He has end stage prostate cancer. There are no further chemotherapy options available. He is a candidate for hospice care. He does have the possibility of additional treatments with the radiation oncologist. He was responding well to his last treatments which he states were supposed to have a total of 6 treatments and he only received 2. Radiation Oncology will be consulted to answer the question of is there additional therapy which could be of benefit? A vascular surgeon will be consulted to place a eliceo filter. Hospice was then explained in detail to the family. Once he has no additional radiation tx's left, than hospice is the best treatment option for him and his family. Advanced care planning and the need for advanced care planning, ie living will, poa, were discussed. The conversation project was recommended as an excellent source. For uatsdin reasons, the patient would need to continue if there was a small chance. There are two important parts to the question should we code a patient. The first question is does the patient want the medical procedure done. The second question is does the doctor feel it would be of benefit. Both should be true in order to proceed. I explained that I do not believe that trying to bring the patient back to life would work, and would only increase pain and suffering. My hope is that the patient makes it long enough to enter hospice care where this conversation, or the outcome of allowing a natural will make sense to all involved. I shared this information with the patient's family and they were grateful for the information. (2) DVT (deep venous thrombosis) (3) Diabetes mellitus
[2016-09-16 23:57] VITALS: BP 101/63; PULSE 85; TEMP 36.7; O2SAT 98
[2016-09-17 06:35] LABS: CREATININE 0.94 mg/dl (0.60-1.40)
[2016-09-17 06:47] VITALS: BMI 36.7
[2016-09-17 07:59] VITALS: BP 103/70; PULSE 87; TEMP 36.5; O2SAT 96
[2016-09-17] MEDS ORDERED: ENOXAPARIN 1.5 MG/KG SQ SCH ×2 (08:00)
[2016-09-17] MEDS ORDERED: ENOXAPARIN 120 MG/0.8 ML SYR SQ SCH (08:00)
[2016-09-17] MEDS: ENOXAPARIN 120 MG/0.8 ML SYR SQ SCH (08:48)
[2016-09-17] MEDS: METOPROLOL TARTRATE 50 MG TAB PO SCH (08:48)
[2016-09-17] MEDS: LISINOPRIL 10 MG TAB PO SCH (08:49)
[2016-09-17] MEDS: INSULIN ASPART 100 UNITS/ML 3 ML PEN SC SCH ×4 (08:49→21:00)
[2016-09-17] MEDS: INSULIN GLARGINE SOLOSTAR 100 UNITS/ML 3 ML PEN SC SCH ×2 (09:09→21:20)
[2016-09-17 10:21] LABS: PARTIAL THROMBOPLASTIN RATIO 1.3
[2016-09-17 11:49] VITALS: BP 101/64; PULSE 68; TEMP 36.6; O2SAT 98
[2016-09-17 15:14] VITALS: BP 111/71; PULSE 76; TEMP 36.6; O2SAT 96
--- NOTE | 2016-09-17 17:17 | Hospitalist Progress Note ---
Hospitalist Progress Note Date of Service Sep 17, 2016. Subjective Pt evaluation today including: conversation w/ patient, conversation w/ family , physical exam Pain: no pain patient without complaints no chest pain no shortness of breath All Other Systems: Reviewed and Negative Medications Medications (Trade) Dose Ordered Sig/Derek Route Start Time Stop Time Status Last Admin Dose Admin Enoxaparin Sodium (Lovenox Inj) 120 mg DAILY SQ 09/17/16 08:00 10/17/16 07:59 09/17/16 08:48 120 MG Objective Vital Signs Date Time Temp Pulse Resp B/P Pulse Ox O2 Delivery O2 Flow Rate FiO2 09/17/16 15:32 Room Air 09/17/16 15:14 36.6 76 16 111/71 96 Room Air 09/17/16 11:49 36.6 68 18 101/64 98 Room Air 09/17/16 09:30 Room Air 09/17/16 07:59 36.5 87 18 103/70 96 Room Air 09/16/16 23:59 Room Air 09/16/16 23:57 36.7 85 18 101/63 98 Room Air 09/16/16 20:00 Room Air 09/16/16 19:57 36.7 79 18 119/77 94 Room Air Physical Exam General Appearance: WD/WN, no apparent distress Eyes: normal inspection ENT: hearing grossly normal Neck: trachea midline Respiratory/Chest: lungs clear, normal breath sounds Cardiovascular: regular rate, rhythm Abdomen: normal bowel sounds, non tender, soft Neurologic/Psychiatric: alert Laboratory Results Last 24 Hours Test 09/16/16 20:32 09/17/16 05:57 09/17/16 07:36 09/17/16 10:02 Bedside Glucose 106 mg/dl 105 mg/dl Creatinine 0.94 mg/dl Est Creatinine Clear Calc Drug Dose 84.9 ml/min Estimated GFR () 98.2 Estimated GFR (Non- 84.7 Activated Partial Thromboplast Time 32.7 SECONDS Partial Thromboplastin Ratio 1.3 Test 09/17/16 11:32 09/17/16 16:57 Bedside Glucose 119 mg/dl 110 mg/dl Assessment and Plan (1) Prostate cancer metastatic to multiple sites Assessment & Plan: Case reviewed in detail yesterday with the patient and his son and daughter in law. He will be evaluated for a filter by vascular surgery....make npo p mn in anticipation of that possiblity. He will go home with Lovenox for life. No further chemo options are available. Radiation Oncologist will render his opinion about the benefit of additional tx. He was undergoing a therapy that he had received 2 out of 6 tx and he was responding when he had to go to [facility]. ? if completing the course currently would be helpful? Once radiation tx is done, than he should be on hospice care to help him and his family cope with any symptoms which may arise, and help him to close a wonderful life, in a peaceful way. He code status will remain full while he is pursuing further tx. Once that treatment ends changing his code status to DNR will be entirely consistant with what is medically possible. This was discussed in great detail with his son and daughter in law yesterday. (2) DVT (deep venous thrombosis) (3) Diabetes mellitus Assessment & Plan: well controlled
[2016-09-17 20:12] VITALS: BP 122/79; PULSE 87; TEMP 36.5; O2SAT 98
[2016-09-17] MEDS: ZOLPIDEM TARTRATE 5 MG TAB PO PRN ×2 (21:12→23:40)
[2016-09-17] MEDS: OXYCODONE/ACETAMINOPHEN 5-325 TAB PO PRN (21:13)
[2016-09-17] MEDS: ATORVASTATIN 10 MG TAB PO SCH (21:16)
[2016-09-17] MEDS: METOPROLOL TARTRATE 25 MG TAB PO SCH (21:16)
[2016-09-17] MEDS: MAGNESIUM HYDROXIDE SUSP 30 ML UDC PO PRN (21:20)
[2016-09-17] MEDS ORDERED: SOD PHOSPHATE/SOD BIPHOSPHATE ENEMA 132 ML BTL PR STA (23:14)
[2016-09-17 23:23] VITALS: BP 127/78; PULSE 74; TEMP 36.7; O2SAT 96
[2016-09-18 06:06] VITALS: BMI 36.9
[2016-09-18] MEDS: INSULIN ASPART 100 UNITS/ML 3 ML PEN SC SCH ×5 (06:30→21:00)
[2016-09-18 07:05] LABS: BASO % 0.2 %; BASO ABS # 0.01 K/uL (0-0.2); COMPLETE YES; EOS % 1.2 %; IG% 0.2 %; LYMPH % 22.7 %; LYMPH ABS # 0.96 K/uL (1.2-3.4); MEAN CORPUSCULAR HEMOGLOBIN 30.5 pg (25-34); MEAN CORPUSCULAR HGB CONC 32.4 g/dl (32-36); MEAN PLATELET VOLUME 9.8 fL (7.4-10.4); MONO % 10.4 %; NEUT % 65.3 %; PLATELET COUNT 275 K/uL (130-400); RED BLOOD COUNT 3.51 M/uL (4.7-6.1); WHITE BLOOD COUNT 4.22 K/uL (4.8-10.8)
[2016-09-18 07:29] VITALS: BP 102/66; PULSE 81; TEMP 36.6; O2SAT 97
[2016-09-18] MEDS: LISINOPRIL 10 MG TAB PO SCH (07:57)
[2016-09-18] MEDS: METOPROLOL TARTRATE 50 MG TAB PO SCH (07:58)
[2016-09-18] MEDS: ENOXAPARIN 120 MG/0.8 ML SYR SQ SCH (07:58)
[2016-09-18] MEDS: INSULIN GLARGINE SOLOSTAR 100 UNITS/ML 3 ML PEN SC SCH ×2 (08:15→20:00)
--- NOTE | 2016-09-18 09:35 | Hematology/Oncology Prog Note ---
Hematology/Onc Progress Note Date of Service Sep 18, 2016. Diagnoses Progressive refractory castrate resistant prostate carcinoma Medications Medications Administered Medications (Trade) Dose Ordered Sig/Derek Route Start Time Stop Time Status Last Admin Dose Admin Sodium Chloride (Nss 1000ml) 1,000 ml @ 125 mls/hr Q8H STAT IV 09/15/16 00:04 09/15/16 06:26 DC 09/15/16 00:42 125 MLS/HR Morphine Sulfate (MoRPHine SULFATE INJ) 4 mg NOW STAT IV 09/15/16 00:04 09/15/16 00:08 DC 09/15/16 00:41 4 MG Ondansetron HCl (Zofran Inj) 4 mg NOW STAT IV 09/15/16 00:04 09/15/16 00:08 DC 09/15/16 00:41 4 MG Morphine Sulfate (MoRPHine SULFATE INJ) 4 mg NOW STAT IV 09/15/16 02:56 09/15/16 02:57 DC 09/15/16 03:06 4 MG Atorvastatin Calcium (Lipitor Tab) 10 mg HS PO 09/15/16 21:00 10/15/16 20:59 09/17/16 21:16 10 MG Insulin Glargine (Lantus Solostar Pen) 20 unit BID SC 09/15/16 08:00 10/15/16 08:59 09/18/16 08:15 20 UNIT Lisinopril (Zestril Tab) 10 mg DAILY PO 09/15/16 08:00 10/15/16 08:59 09/18/16 07:57 10 MG Metoprolol Tartrate (Lopressor Tab) 25 mg QPM PO 09/15/16 21:00 10/15/16 20:59 09/17/16 21:16 25 MG Metoprolol Tartrate (Lopressor Tab) 50 mg QAM PO 09/15/16 08:00 10/15/16 08:59 09/18/16 07:58 50 MG Oxycodone/ Acetaminophen (Percocet 5-325mg Tab) 1 tab Q4H PRN PO 09/15/16 05:15 09/29/16 05:14 09/17/16 21:13 1 TAB Magnesium Hydroxide (Milk Of Magnesia Susp) 30 ml Q6H PRN PO 09/15/16 05:15 5/13/17 05:14 09/17/16 21:20 30 ML Zolpidem Tartrate (Ambien Tab) 5 mg HSZ PRN PO 09/15/16 05:15 10/15/16 05:14 09/17/16 23:40 5 MG Ondansetron HCl (Zofran Inj) 4 mg Q6H PRN IV 09/15/16 05:15 10/15/16 05:14 09/16/16 15:09 4 MG Insulin Aspart SLIDING SCALE G... ACHS SC 09/15/16 06:30 10/15/16 06:59 09/15/16 13:46 1 UNITS Heparin Sodium/ Dextrose (Heparin 25,000 Unit/500ml D5W) 500 ml @ 24 mls/hr [id number] PRN IV 09/15/16 09:30 09/16/16 10:22 DC 09/16/16 00:49 27 MLS/HR Enoxaparin Sodium (Lovenox Inj) 129 mg DAILY@0800 SQ 09/16/16 11:00 09/16/16 17:08 DC 09/16/16 12:49 129 MG Enoxaparin Sodium (Lovenox Inj) 120 mg DAILY SQ 09/17/16 08:00 10/17/16 07:59 09/18/16 07:58 120 MG Sodium Biphosphate/ Sodium Phosphate (Fleet Enema) 132 ml NOW STAT IL 09/17/16 23:14 09/17/16 23:16 DC 09/18/16 06:41 132 ML Subjective He denies any new symptoms. Pain seems fairly well under control. He does state his feet bother him from time to time he is now on once a day Lovenox Review of Systems: ROS is difficult to to language dufferences Constitutional: Negative for weight loss, night sweats, or fever Eyes: Negative for event change of vision ENT: Negative for epistaxis, nasal discharge, sore throat, or deafness Cardiovascular: Negative for chest pain, palpitations, dizziness, diaphoresis Respiratory: Negative for new shortness of breath,hemoptysis, or purulent cough Gastrointestinal: Negative for diarrhea, hematemesis, melena, nausea, vomiting , or dyspepsia Integumentary (skin): Negative for rash or jaundice discoloration Neurological: Negative for new weakness, seizure activity, headache, or dizziness Lymphatic/Hematologic: Negative for petechiae, bleeding or new adenopathy Musculoskeletal: Negative for new joint or back pain Allergic/Immunologic: Negative for unusual rash or pruritis. Vital Signs Vital Signs Past 12 Hours Date Time Temp Pulse Resp B/P Pulse Ox O2 Delivery O2 Flow Rate FiO2 09/18/16 08:19 Room Air 09/18/16 07:29 36.6 81 18 102/66 97 Room Air 09/17/16 23:59 Room Air 09/17/16 23:23 36.7 74 20 127/78 96 Room Air Physical Exam Constitutional: vitals are stable. Eyes: Eyes are FRANNY EOMI without conjuctival erythema or icterus. ENT: External examination was negative for masses. Neck: Negative for masses or palpable thyromegaly Respiratory: Lung sounds were generally clear bilaterally Cardiovascular: Heart was RRR without significant murmur, gallops aoe rubs Gastrointestinal: No palpable hepatic or splenomegaly. The abdomen was soft with normal bowel sounds. Lymphatic system: there was no palpable peripheral lymphadenopathy Musculoskeletal System: The musculoskeletal system seemed concordant with age. Skin: The skin was negative for jaundice. Neurologic exam: The exam was negative for any focal findings. Deep tendon reflexes were equal and symmetrical. Both lower extremities seem week but without focal neurologic signs Psychiatric exam: Was essentially negative with normal mood and effect. Extremities: Negative for edema erythema Laboratory Last 24 Hours Test 09/17/16 10:02 09/17/16 11:32 09/17/16 16:57 09/17/16 20:03 Activated Partial Thromboplast Time 32.7 SECONDS Partial Thromboplastin Ratio 1.3 Bedside Glucose 119 mg/dl 110 mg/dl 110 mg/dl Test 09/18/16 06:55 09/18/16 07:46 White Blood Count 4.22 K/uL Red Blood Count 3.51 M/uL Hemoglobin 10.7 g/dL Hematocrit 33.0 % Mean Corpuscular Volume 94.0 fL Mean Corpuscular Hemoglobin 30.5 pg Mean Corpuscular Hemoglobin Concent 32.4 g/dl Platelet Count 275 K/uL Mean Platelet Volume 9.8 fL Neutrophils (%) (Auto) 65.3 % Lymphocytes (%) (Auto) 22.7 % Monocytes (%) (Auto) 10.4 % Eosinophils (%) (Auto) 1.2 % Basophils (%) (Auto) 0.2 % Neutrophils # (Auto) 2.75 K/uL Lymphocytes # (Auto) 0.96 K/uL Monocytes # (Auto) 0.44 K/uL Eosinophils # (Auto) 0.05 K/uL Basophils # (Auto) 0.01 K/uL RDW Standard Deviation 47.2 fL RDW Coefficient of Variation 13.8 % Immature Granulocyte % (Auto) 0.2 % Immature Granulocyte # (Auto) 0.01 K/uL Bedside Glucose 81 mg/dl Assessment & Plan Castrate resistant refractory progressive prostate carcinoma. He is now on one of the Lovenox for DVT. Radiation therapy has been consulted to review a retreatment with radiation. Past surgeries also be consulted for IVC filter placement. No systemic chemotherapy is planned. Palliative care consult and home Care should also be planned
--- NOTE | 2016-09-18 09:50 | DIAGNOSTIC IMAGING REPORT ---
KUB CLINICAL HISTORY: Generalized abdominal pain. FINDINGS: 2 AP supine abdominal radiographs are correlated with abdominal CT dated 03/27/2015. There is a nonobstructed abdominal bowel gas pattern noting moderate to severe colonic fecal retention. No evidence of intraperitoneal free air is seen on these supine views. There are no abnormal abdominal calcifications. Phleboliths are identified in the pelvis. The lung bases are clear as imaged. The skeletal structures are osteopenic. There is evidence of diffuse osteoblastic metastatic disease, similar to prior studies. IMPRESSION: 1. Nonobstructed abdominal bowel gas pattern noting moderate to severe constipation. 2. Diffuse osteoblastic metastatic disease is again noted. Electronically signed by: Eros Segovia M.D. 09/18/2016 9:48 AM Dictated Date/Time: 09/18/2016 9:46 AM
[2016-09-18 10:45] LABS: PARTIAL THROMBOPLASTIN RATIO 1.3
[2016-09-18 11:15] VITALS: BP 131/74; PULSE 73; TEMP 36.8; O2SAT 97
--- NOTE | 2016-09-18 12:38 | Hospitalist Progress Note ---
Hospitalist Progress Note Date of Service Sep 18, 2016. Subjective Pt evaluation today including: conversation w/ patient Patient had no acute issue overnight Patient complains of constipation, denies ay nausea or vomiting Constitutional: No fever Eyes: No see HPI ENT: No hearing loss Respiratory: No cough, No shortness of breath Cardiovascular: No chest pain Abdomen: No pain, No vomiting Male : No dysuria Neurologic: No memory loss Psychiatric: No depression symptoms Objective Vital Signs Date Time Temp Pulse Resp B/P Pulse Ox O2 Delivery O2 Flow Rate FiO2 09/18/16 11:15 36.8 73 20 131/74 97 Room Air 09/18/16 08:19 Room Air 09/18/16 07:29 36.6 81 18 102/66 97 Room Air 09/17/16 23:59 Room Air 09/17/16 23:23 36.7 74 20 127/78 96 Room Air 09/17/16 20:12 36.5 87 20 122/79 98 Room Air 09/17/16 20:00 Room Air 09/17/16 15:32 Room Air 09/17/16 15:14 36.6 76 16 111/71 96 Room Air Physical Exam General Appearance: WD/WN, no apparent distress Eyes: normal inspection ENT: normal ENT inspection Neck: supple, no adenopathy Respiratory/Chest: chest non-tender, lungs clear Cardiovascular: regular rate, rhythm, no edema Abdomen: normal bowel sounds, non tender, soft Extremities: normal range of motion, non-tender, normal inspection Neurologic/Psychiatric: 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 nml as tested, no motor/sensory deficits, alert, oriented x 3 Skin: normal color, warm/dry Lymphatic: no adenopathy Laboratory Results Last 24 Hours Test 09/17/16 16:57 09/17/16 20:03 09/18/16 06:55 09/18/16 07:46 Bedside Glucose 110 mg/dl 110 mg/dl 81 mg/dl White Blood Count 4.22 K/uL Red Blood Count 3.51 M/uL Hemoglobin 10.7 g/dL Hematocrit 33.0 % Mean Corpuscular Volume 94.0 fL Mean Corpuscular Hemoglobin 30.5 pg Mean Corpuscular Hemoglobin Concent 32.4 g/dl Platelet Count 275 K/uL Mean Platelet Volume 9.8 fL Neutrophils (%) (Auto) 65.3 % Lymphocytes (%) (Auto) 22.7 % Monocytes (%) (Auto) 10.4 % Eosinophils (%) (Auto) 1.2 % Basophils (%) (Auto) 0.2 % Neutrophils # (Auto) 2.75 K/uL Lymphocytes # (Auto) 0.96 K/uL Monocytes # (Auto) 0.44 K/uL Eosinophils # (Auto) 0.05 K/uL Basophils # (Auto) 0.01 K/uL RDW Standard Deviation 47.2 fL RDW Coefficient of Variation 13.8 % Immature Granulocyte % (Auto) 0.2 % Immature Granulocyte # (Auto) 0.01 K/uL Test 09/18/16 10:26 09/18/16 11:17 Activated Partial Thromboplast Time 34.7 SECONDS Partial Thromboplastin Ratio 1.3 Bedside Glucose 140 mg/dl Assessment and Plan (1) Prostate cancer metastatic to multiple sites (2) DVT (deep venous thrombosis) (3) Diabetes mellitus 65 y/o M Hx met prostate CA, COPD, DM, AF . Pt developed pain and swelling in his RLE and presented for evaluation. AN ultrasound confirmed an extensive RLE DVT extending into the R femoral vein. He denies SOB above baseline or CP. The pt is on 3mg Coumadin daily and his INR is therapeutic at 2.2 at the time of admission. He states that he was recently in [place] having returned one week prior which may have placed him at further risk of DVT. Constipation - check KUB r/o constipation - start miralax bid DVT - consult vascular surgery for vascular surgery - possibly breakthrough due to underlying CA - appreciate hematology/oncology consult - continue lovenox - will need lifelong anticoagulation COPD - cont inhalers - no current exacerbation DM - sliding scale provided Prostate CA with bone met - treated with chemo and previously radiation - patient not a candidate for further chemotherapy per oncology - palliative care consult Full code -lovenox
[2016-09-18 15:03] VITALS: BP 126/84; PULSE 79; TEMP 36.6; O2SAT 99
[2016-09-18 19:35] VITALS: BP 110/69; PULSE 86; TEMP 36.6; O2SAT 97
[2016-09-18] MEDS: POLYETHYLENE (MIRALAX) 17 GM PACK PO SCH (20:21)
[2016-09-18] MEDS: ATORVASTATIN 10 MG TAB PO SCH (20:59)
[2016-09-18] MEDS: METOPROLOL TARTRATE 25 MG TAB PO SCH (20:59)
[2016-09-18] MEDS: OXYCODONE/ACETAMINOPHEN 5-325 TAB PO PRN (21:07)
[2016-09-18] MEDS: ZOLPIDEM TARTRATE 5 MG TAB PO PRN (21:07)
[2016-09-19 00:34] VITALS: BP 97/66; PULSE 79; TEMP 36.4; O2SAT 96
[2016-09-19] MEDS: OXYCODONE/ACETAMINOPHEN 5-325 TAB PO PRN ×2 (02:03→20:45)
[2016-09-19] MEDS: ZOLPIDEM TARTRATE 5 MG TAB PO PRN ×2 (02:03→20:45)
[2016-09-19 04:05] VITALS: BP 95/62; PULSE 83; TEMP 36.4; O2SAT 95
[2016-09-19 06:42] VITALS: BMI 36.6
[2016-09-19 07:25] VITALS: BP 101/64; PULSE 80; TEMP 36.6; O2SAT 98
[2016-09-19] MEDS: INSULIN ASPART 100 UNITS/ML 3 ML PEN SC SCH ×4 (08:18→20:41)
[2016-09-19] MEDS: POLYETHYLENE (MIRALAX) 17 GM PACK PO SCH ×2 (08:53→20:39)
[2016-09-19] MEDS: METOPROLOL TARTRATE 50 MG TAB PO SCH (08:54)
[2016-09-19] MEDS: LISINOPRIL 10 MG TAB PO SCH (08:54)
[2016-09-19] MEDS: ENOXAPARIN 120 MG/0.8 ML SYR SQ SCH (08:54)
--- NOTE | 2016-09-19 08:55 | HEME/ONC PROGRESS NOTE ---
DATE: 09/19/2016 DIAGNOSES: 1. Right lower extremity deep venous thrombosis. 2. Hormone refractory prostate cancer. 3. Chronic anemia. 4. Hypomagnesemia. HISTORY OF PRESENT ILLNESS: Mr. Li is a pleasant 65-year-old Nigerian gentleman who was admitted on September 15 with bilateral leg pain and right lower extremity swelling. Doppler confirmed DVT. He was placed on Lovenox subcutaneously. [facility] was consulted because his past history of prostate cancer. Apparently, he had received various treatments while residing in [place]. Unfortunately, I do not know much about this gentleman, but we will discuss with Dr. Drew. Clinically, he seems to be doing well. He is pending OR today for IVC filter placement. He is not experiencing any pain and nursing reports no overnight issues. PHYSICAL EXAMINATION: GENERAL: He is in no acute distress. VITAL SIGNS: Temperature 36.6, pulse 80, respirations 18, blood pressure 101/64. SKIN: Without rash or lesion. HEENT: Oral mucosa without erythema or ulceration. NECK: Supple. HEART: Regular rate and rhythm. LUNGS: Clear to auscultation bilaterally. ABDOMEN: Soft, nontender, nondistended. EXTREMITIES: Increased lower extremity swelling, no pitting edema noted. NEUROLOGIC: Grossly intact. LABORATORY DATA: WBC count 42 20, hemoglobin 10.7, and platelet count 275,000. Chemistries pending. IMPRESSION: 1. Right lower extremity deep venous thrombosis. 2. Metastatic prostate cancer (hormone refractory). PLAN: In summary, I had the pleasure of meeting Don today ascites as I have just joined the consult service today. Review of prior hospital notes suggest that he is indeed hormone refractory and contemplating palliative care at this juncture. We will discuss further with Dr. Drew. I agree with current medical management. We will continue to follow him periodically throughout his hospital stay. Thank you again for allowing us to participate in his care.
[2016-09-19] MEDS: INSULIN GLARGINE SOLOSTAR 100 UNITS/ML 3 ML PEN SC SCH ×2 (08:59→20:43)
--- NOTE | 2016-09-19 09:38 | Medical Student: [facility] ---
Med Student Progress Note Date of Service Sep 19, 2016. Subjective Pt evaluation today including: conversation w/ patient, physical exam, lab review, review of studies 65 year old [place] male with history of metastatic prostate cancer who presented to the ED on 09/15 for right lower extremity pain and swelling secondary to DVT in right popliteal vein extending into right femoral vein. INR at time of admission was 2.2 on 3mg of Coumadin. Patient denies new problems overnight. He has some "numbness" in his right foot but says that he has experienced this in his feet bilaterally on and off since he chemotherapy. Denies chest pain, abdominal pain, shortness of breath, nausea , vomiting, and calf pain. He says he had a bowel movement this morning. ROS is limited due to language barrier. Review of Systems Respiratory: No dyspnea at rest, No shortness of breath Cardiac: No chest pain, No claudication Abdomen: No constipation, No diarrhea, No nausea, No pain, No vomiting Male : No dysuria Neurologic: + numbness/tingling (right foot) Objective Vital Signs Date Time Temp Pulse Resp B/P Pulse Ox O2 Delivery O2 Flow Rate FiO2 09/19/16 07:25 36.6 80 18 101/64 98 Room Air 09/19/16 04:05 36.4 83 18 95/62 95 Room Air 09/19/16 00:34 36.4 79 18 97/66 96 Room Air 09/18/16 19:35 36.6 86 20 110/69 97 Room Air 09/18/16 18:55 Room Air 09/18/16 15:03 36.6 79 18 126/84 99 Room Air 09/18/16 11:15 36.8 73 20 131/74 97 Room Air Physical Exam General Appearance: WD/WN, no apparent distress ENT: hearing grossly normal Respiratory/Chest: chest non-tender, lungs clear, normal breath sounds, no respiratory distress, no accessory muscle use Cardiovascular: regular rate, rhythm, no gallop, no murmur Abdomen: normal bowel sounds, non tender, soft, no organomegaly Extremities: no pedal edema, no calf tenderness Neurologic/Psychiatric: alert, normal mood/affect, oriented x 3 Skin: normal color, warm/dry, no rash Laboratory Results Last 24 Hours Test 09/18/16 10:26 09/18/16 11:17 09/18/16 16:34 09/18/16 19:54 Activated Partial Thromboplast Time 34.7 SECONDS Partial Thromboplastin Ratio 1.3 Bedside Glucose 140 mg/dl 121 mg/dl 87 mg/dl Test 09/19/16 07:54 Bedside Glucose 89 mg/dl Assessment and Plan Assessment and Plan: ASSESSMENT 65 year old [place] male with history of metastatic prostate cancer who presented to the ED on 09/15 for right lower extremity DVT possibly secondary to prostate cancer. INR at time of admission was 2.2 on 3mg of Coumadin. He was seen by Dr. Drew who recommend he be switched to 1.5mg/kg SQ Lovenox for DVT treatment. He does not recommend further chemotherapy for Mr. Li since the patient has failed this in the past. He recommends consulting radiation oncology to see if they suggest radiation therapy. Otherwise he has explained to the family that the patient will probably need palliative care in the near future. PLAN 1) DVT secondary to prostate cancer -lovenox 1.5mg/kg SQ daily -Was seen by vascular surgery today, patient is scheduled for IVC filter placement tomorrow 2) Prostate cancer with mets -Hem/onc does not recommend further chemotherapy for this patient -Radiation oncology consult ordered -palliative care consult ordered 3) COPD -no current exacerbation -continue inhalers 4) DM -sliding scale insulin 5) Constipation -Miralax BID 6) Full code -Lovenox for DVT prophylaxis
[2016-09-19 10:23] LABS: PARTIAL THROMBOPLASTIN RATIO 1.1
--- NOTE | 2016-09-19 10:48 | Surgery Consultation ---
Consultation Date of Service Sep 19, 2016. Chief Complaint failure coumadin, possible need IVC filter History of Present Illness The patient is a 65 year old male with hx of metastatic prostate ca, seen in consultation today for RLE DVT and possible IVC filter insertion. Pt speaks broken Bengali, so hx difficult to obtain. States he was started on Coumadin while in [place], but does not know why it was started. Denies ever having DVT or PE before. Admits edema RLE. Denies LOPEZ, fever, chills, chest pain, SOB, abd pain, N/V, rest pain, claudication, other complaints. INR on arrival was 2.2. Vitals Vital Signs Past 12 Hours Date Time Temp Pulse Resp B/P Pulse Ox O2 Delivery O2 Flow Rate FiO2 09/19/16 09:00 Room Air 09/19/16 07:25 36.6 80 18 101/64 98 Room Air 09/19/16 04:05 36.4 83 18 95/62 95 Room Air 09/19/16 00:34 36.4 79 18 97/66 96 Room Air Allergies Coded Allergies: No Known Allergies (Unverified , 09/14/16) Home Medications Scheduled Atorvastatin (Lipitor), 10 MG PO HS Insulin Glargine (Lantus Solostar), 20 UNITS SC BID Insulin Lispro (Human) (Humalog), 5 ML SC AC Lisinopril (Zestril), 10 MG PO DAILY Metoprolol Tartrate (Lopressor) (Lopressor), 25 MG PO QPM Metoprolol Tartrate (Lopressor) (Lopressor), 50 MG PO QAM Scheduled PRN Oxycodone/Acetaminophen 5MG/325MG (Percocet 5MG/325MG), 1 TABLETS PO Q4H PRN for Pain Polyethylene Glycol 3350 (Miralax), 17 GM PO BID PRN for Constipation Problem List Medical Problems: (1) Acute kidney injury (2) Anemia (3) COPD exacerbation (4) Diabetes mellitus (5) DVT (deep venous thrombosis) (6) Emphysema lung (7) Facial edema (8) Hematuria (9) Hypomagnesemia (10) Metastatic cancer (11) Non-st elevation (nstemi) myocardial infarction (12) Prostate cancer (13) Prostate cancer metastatic to multiple sites (14) Pyelonephritis (15) Sepsis (16) V-tach Surgical / Medical History Hx Cardiac Surgery: No Hx Abdominal Surgery: No Hx Cancer Surgery: Yes (Radical prostatectomy) Hx Thoracic Surgery: No Hx Orthopedic: No Hx Urinary Tract Surgery: No HX Other Surgery: Yes (Kidney surgery to remove stone) Past Medical/Surgical History: Cancer, Diabetes, Hypertension Family History No pertinent family history Social History Smoking Status: Former Smoker Hx Tobacco Use In Past Year?: No Hx Alcohol Use - Type & Amnt: No Hx Substance Use -Type & Amnt: No Review of Systems Constitutional: No chills, No malaise Skin: No change in color Eyes: No visual changes ENMT: No sore throat Respiratory: No cough, No short of breath Cardiovascular: No chest pain, No palpitations Gastrointestinal: No abdominal pain, No nausea, No vomiting Neurologic: No dizziness, No lethargy Physical Exam Constitutional: General Apperance: well-nourished, well-developed Level of Distress: NAD, chronically ill Psychiatric: Mental Status: active & alert, normal mood, normal affect Orientation: oriented except where noted, to time, to place, to person Memory: recent memory normal, remote memory normal Head: normocephalic, atraumatic Eyes: EOM: EOMI ENMT: normal ENT inspection, hearing grossly normal Neck: supple, trachea midline Lungs: Respiratory effort: no dyspnea Auscultation: no rales/crackles, no rhonchi Cardiovascular: Apical Impulse: not displaced Heart Auscultation: RRR, no gallops Peripheral Pulses: Pulses: full and equal, in all extremities except if noted Bruits: none appreciated Carotid Pulse: normal on the left, normal on the right Brachial Pulses: normal on the left, normal on the right Radial Pulse: normal on the left, normal on the right Femoral Pulse: normal on the left, normal on the right Posterior Tibialis Pulse: decreased on the left, decreased on the right Dorsalis Pedis Pulse: decreased on the left, decreased on the right Abdomen: Bowel Sounds: normal Inspection & Palpation: soft, non-distended, no tenderness, guarding & rebound Musculoskeletal: normal strength (5/5 throughout), normal tone Extremities: Upper Right: no cyanosis, no edema, no varicosities Upper Left: no cyanosis, no edema, no varicosities Lower Right: no cyanosis, no varicosities, edema Lower Left: no cyanosis, no edema, no varicosities, no palpable cord Neurologic: Cranial Nerves: grossly intact Sensation: grossly intact Assessment and Plan ASSESSMENT and PLAN: RLE DVT, failure coumadin metastatic prostate ca Pt discussed with Dr Birch, recommends IVC filter insertion. Scheduled in OR tomorrow, 09/20. Procedure, risks, benefits, and alternatives discussed with pt and present. Pt expresses understanding and agreement.
[2016-09-19 11:31] VITALS: BP 137/82; PULSE 87; TEMP 36.4; O2SAT 98
--- NOTE | 2016-09-19 13:33 | Hospitalist Progress Note ---
Hospitalist Progress Note Date of Service Sep 19, 2016. (Belle Stoll ., CINDI-C) Subjective Pt evaluation today including: conversation w/ patient, physical exam, chart review, lab review, review of studies, review of inpatient medication list Pain: None PO Intake: Tolerating PO diet Voiding: no voiding problems Patient reports feeling well. He states that he does not have any pain or swelling in his right leg. He reports that yesterday he did have some numbness in his right foot but that has since resolved. He reports having a bowel movement this morning and no longer feels constipated. The patient denies fevers, chills, sweats, chest pain, palpitations, claudication, cough, wheezing , shortness of breath, nausea, vomiting, abdominal pain, dysuria, hematuria, urinary retention, paralysis, weakness, numbness and tingling. Additional Comments: See HPI for pertinent positives and negatives. All other systems reviewed and negative. (Belle Stoll ., CINDI-C) Objective Vital Signs Date Time Temp Pulse Resp B/P Pulse Ox O2 Delivery O2 Flow Rate FiO2 09/19/16 11:31 36.4 87 20 137/82 98 Room Air 09/19/16 09:00 Room Air 09/19/16 07:25 36.6 80 18 101/64 98 Room Air 09/19/16 04:05 36.4 83 18 95/62 95 Room Air 09/19/16 00:34 36.4 79 18 97/66 96 Room Air 09/18/16 19:35 36.6 86 20 110/69 97 Room Air 09/18/16 18:55 Room Air 09/18/16 15:03 36.6 79 18 126/84 99 Room Air (Belle Stoll ., CINDI-C) Physical Exam General Appearance: WD/WN, no apparent distress, + obese (thanks) Eyes: normal inspection, EOMI, sclerae normal, + pertinent finding (cataract, left eye) ENT: normal ENT inspection, hearing grossly normal, pharynx normal Neck: supple, no JVD, trachea midline Respiratory/Chest: lungs clear, normal breath sounds, no respiratory distress Cardiovascular: regular rate, rhythm, no gallop, no murmur Abdomen: normal bowel sounds, non tender, soft Extremities: non-tender, normal inspection, no pedal edema, no calf tenderness Neurologic/Psychiatric: alert, normal mood/affect, oriented x 3 Skin: normal color, warm/dry, no rash (Belle Stoll ., NORA) Laboratory Results Last 24 Hours Test 09/18/16 16:34 09/18/16 19:54 09/19/16 07:54 09/19/16 10:01 Bedside Glucose 121 mg/dl 87 mg/dl 89 mg/dl Activated Partial Thromboplast Time 29.7 SECONDS Partial Thromboplastin Ratio 1.1 Test 09/19/16 11:29 Bedside Glucose 106 mg/dl (Belle Stoll PA-C) Assessment and Plan (1) Prostate cancer metastatic to multiple sites (2) DVT (deep venous thrombosis) (3) Diabetes mellitus 65 y/o male with a history of metastatic prostate CA, COPD, DM, HTN,HLD, and a- fib who presented with pain and swelling in his right lower extremity. Doppler ultrasound showed extensive right lower extremity DVT in the right femoral vein. The patient recently returned from a trip to [place]. The patient takes warfarin 3 mg daily. INR was 2.2 on arrival. Acute RLE DVT, failed warfarin therapy -Admit to [facility] -Continue Lovenox 120 mg SC qd. Patient will need lifelong Lovenox due to malignancy. Currently no insurance. Nurse navigator and case management working on options. -Vascular surgery consultation, appreciate recs: Dr. Birch recommends IVC filter placement. Patient scheduled for the OR on 09/20 Metastatic prostate cancer -Previously treated with chemotherapy and radiation -Oncology consult, appreciate recs: Patient is hormone refractory, not a good candidate for further chemotherapy. -Palliative care consulted, out of office until 09/20 Constipation--improving. Patient reports having a bowel movement this morning -KUB shows moderate to severe constipation, nonobstructing bowel gas pattern. -Miralax bid COPD w/o exacerbation -No complaints, continue to monitor DM II--last hemoglobin A1c on record from 2014 -Insulin sliding scale -Check BSGs q ac and qhs -Recheck hemoglobin A1c A-fib--currently in sinus rhythm -Continue metoprolol tartrate 50 mg PO qam and 25 mg PO qpm HTN--stable -Continue lisinopril 10 mg PO qd HLD -Continue atorvastatin 10 mg PO qd Code Status -Level I, FULL RESUSCITATION STATUS This chart was completed in part utilizing Dragon Speech Voice Recognition software. Attempts were made to minimize the grammatical errors, random word insertions, pronoun errors and incomplete sentences. Any formal questions or concerns about the content, text or information contained within the body of this dictation should be directly addressed to the provider for clarification. (Belle Stoll ., PA-C) I agree with PA assessment and plan and have seen and examined pt myself Resting comfortably in bed No complaints Cont lovenox at this time Radiation/chemo per heme/onc Consulted palliative care IVC filter to be placed 09/20 (Conner Thompson, Roshan.O.)
[2016-09-19 15:31] LABS: ESTIMATED AVERAGE GLUCOSE 134 mg/dl; HA1C FLAG Normal (Normal)
--- NOTE | 2016-09-19 16:23 | Radiation Oncology Progress Nt ---
Radiation Oncology Progress Nt Date of Service Date of Service: Sep 19, 2016. Subjective Pt evaluation today including: conversation w/ patient, conversation w/ family (Spoke with patient's son on phone while in room with patient. ) At bedside, the patient is doing well and is comfortable. He has no complaints. He is planning to undergo a IVC filter placement tomorrow. Review of Systems All Other Systems: Reviewed and Negative Objective Vital Signs Date Time Temp Pulse Resp B/P Pulse Ox O2 Delivery O2 Flow Rate FiO2 09/19/16 11:31 36.4 87 20 137/82 98 Room Air 09/19/16 09:00 Room Air 09/19/16 07:25 36.6 80 18 101/64 98 Room Air 09/19/16 04:05 36.4 83 18 95/62 95 Room Air 09/19/16 00:34 36.4 79 18 97/66 96 Room Air 09/18/16 19:35 36.6 86 20 110/69 97 Room Air 09/18/16 18:55 Room Air Physical Exam General Appearance: WD/WN, no apparent distress Eyes: normal inspection ENT: normal ENT inspection Neck: supple, no adenopathy Respiratory/Chest: chest non-tender, lungs clear, normal breath sounds, no respiratory distress Cardiovascular: regular rate, rhythm, no edema, no gallop, no JVD Abdomen: normal bowel sounds, non tender, soft, no organomegaly Neurologic/Psychiatric: alert, oriented x 3 Laboratory Results Last 24 Hours Test 09/18/16 16:34 09/18/16 19:54 09/19/16 07:54 09/19/16 10:01 Bedside Glucose 121 mg/dl 87 mg/dl 89 mg/dl Activated Partial Thromboplast Time 29.7 SECONDS Partial Thromboplastin Ratio 1.1 Estimated Average Glucose 134 mg/dl Hemoglobin A1c 6.3 % Test 09/19/16 11:29 Bedside Glucose 106 mg/dl Assessment and Plan Mr. 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 The patient was previously treated with multiple drug regimens including chemotherapy and did continue to have progression of his prostate cancer. We were asked to evaluate him previously for consideration of [place]-[facility] treatment (Xofigo). Ultimately, the patient received 2 infusions of Xofigo in October 2015. The patient was subsequently lost to follow-up and did not return for any further therapy. More recently, the patient has returned from [place]. According to his family, he did receive further chemotherapy while in [place] until just recently. The patient is now admitted to the hospital due to a lower extremity DVT and has been placed on Lovenox therapy and is planning to undergo a IVC filter placement. Dr. Drew has seen the patient in consultation while in the inpatient setting and Dr. Meyer is now following the patient while in the inpatient setting. Dr. Drew did recommend ordering a PSA which was completed on 09/15/2016 and was 3190.0 which is a significant increase from 569.0 on 08/07/2015. Dr. Drew has recommended against further consideration of chemotherapy with potential consideration of hospice due to the patient's advanced state of disease. The family has refused this option and would like to consider any available options for treatment. We have been asked to evaluate him for consideration of potential Xofigo therapy. Today I did have a discussion with both the patient and his son. At this point , I have recommended completing restaging scans to assess the full extent of metastatic disease which would include a CT of the chest/abdomen/pelvis and bone scan. If there is no evidence of visceral metastatic disease, Xofigo may be potentially considered since there are no other options and the patient and patient's family would like to pursue any treatment available. We will order a CT of the chest/abdomen/pelvis and bone scan to be completed in the outpatient setting and we will then see the patient back in follow-up evaluation to discuss the results and overall recommendations. I've spoken with Dr. Franck Drew who did confirm that he is recommending no further therapy for medical oncology. I will also plan to discuss the case with Dr. Luis Fernando Meyer from medical oncology who is also following the patient in the inpatient setting. I have given him my contact information to both the patient and his son in case any further questions or concerns. We will call them with scheduled appointments and dates for the restaging scans and follow-up evaluation.
[2016-09-19 19:21] VITALS: BP 126/85; PULSE 100; TEMP 36.7; O2SAT 93
[2016-09-19] MEDS: ATORVASTATIN 10 MG TAB PO SCH (20:43)
[2016-09-19] MEDS: METOPROLOL TARTRATE 25 MG TAB PO SCH (20:43)
[2016-09-19 23:54] VITALS: BP 104/63; PULSE 72; TEMP 36.5; O2SAT 99
[2016-09-20] VITALS (10 sets, daily range): BP systolic 93–131; BP diastolic 60–78; PULSE 70–84; TEMP 36.3–36.7; O2SAT 92–100
[2016-09-20] MEDS: ZOLPIDEM TARTRATE 5 MG TAB PO PRN ×2 (00:23→22:17)
[2016-09-20] MEDS: OXYCODONE/ACETAMINOPHEN 5-325 TAB PO PRN ×3 (01:00→22:18)
[2016-09-20 05:42] LABS: BASO % 0.3 %; BASO ABS # 0.01 K/uL (0-0.2); COMPLETE YES; EOS % 1.9 %; HEMATOCRIT 30.7 % (42-52); LYMPH % 18.8 %; MEAN CELL VOLUME 96.2 fL (80-100); MEAN CORPUSCULAR HGB CONC 33.2 g/dl (32-36); MEAN PLATELET VOLUME 10.2 fL (7.4-10.4); MONO % 15.4 %; NEUT % 63.6 %; PLATELET COUNT 246 K/uL (130-400); RED BLOOD COUNT 3.19 M/uL (4.7-6.1); WHITE BLOOD COUNT 3.19 K/uL (4.8-10.8)
[2016-09-20] MEDS ORDERED: CEFAZOLIN 2000 MG/60 ML D5W 60 ML IV SCH (06:00)
[2016-09-20 06:04] LABS: CREATININE 1.1 mg/dl (0.60-1.40)
[2016-09-20] MEDS: INSULIN ASPART 100 UNITS/ML 3 ML PEN SC SCH ×4 (06:30→20:56)
[2016-09-20] MEDS: INSULIN GLARGINE SOLOSTAR 100 UNITS/ML 3 ML PEN SC SCH ×2 (08:00→21:17)
[2016-09-20] MEDS: POLYETHYLENE (MIRALAX) 17 GM PACK PO SCH ×2 (08:00→21:12)
[2016-09-20] MEDS: METOPROLOL TARTRATE 50 MG TAB PO SCH (08:21)
[2016-09-20] MEDS: LISINOPRIL 10 MG TAB PO SCH (08:22)
[2016-09-20] MEDS: ENOXAPARIN 120 MG/0.8 ML SYR SQ SCH (08:22)
--- NOTE | 2016-09-20 09:50 | Progress Note ---
Progress Note Date of Service Sep 20, 2016. Progress Note Patient for insertion of IVC filter today. I have discussed the risks options and benefits of the procedure with the patient. The patient understands the risks options and benefits and agrees to the procedure. I have examined the patient, reviewed the History & Physical and in the interval since the performance of the History & Physical I have noted the following changes of clinical significance: No changes noted
[2016-09-20] MEDS ORDERED: FENTANYL CITRATE INJ 50 MCG/1 ML 2 ML VIAL ONE (10:23)
[2016-09-20] MEDS ORDERED: MIDAZOLAM HCL 1 MG/ML 2ML VIAL ONE (10:24)
[2016-09-20 10:44] LABS: PARTIAL THROMBOPLASTIN RATIO 1.2
[2016-09-20] MEDS ORDERED: LIDOCAINE HCL 1% 20 ML VIAL INJ ONE (10:52)
--- NOTE | 2016-09-20 11:00 | Medical Student: [facility] ---
Immediate Operative Summary Operative Date Sep 20, 2016. Pre-Operative Diagnosis Right lower extremity DVT and hypercoagulability state Post-Operative Diagnosis same Procedure(s) Performed Placement of IVC filter, right femoral approach, location confirmed by fluoroscopy Surgeon Dr. Birch Special Education Tutor Surgeon(s) none Estimated Blood Loss 0cc Findings filter in infrarenal IVC Specimens none Anesthesia general Complication(s) None Disposition Recovery Room / PACU
[2016-09-20] MEDS ORDERED: IODIXANOL (VISIPAQUE) 270 MG/ML 50ML XX ONE (11:01)
--- NOTE | 2016-09-20 11:02 | [facility] Post Operative Brief Note ---
Immediate Operative Summary Operative Date Sep 20, 2016. Pre-Operative Diagnosis Acute DVT with hypercoaguable state Post-Operative Diagnosis same Procedure(s) Performed Insertion Of Inferior Vena Cava Filter, Right Femoral Approach, Fluoroscopy For Positioning Surgeon Dr. Birch Sales Expert Surgeon(s) none Estimated Blood Loss 0 Findings filter in upright position in infra renal IVC Specimens none Anesthesia local Complication(s) None Disposition
--- NOTE | 2016-09-20 11:52 | Hospitalist Progress Note ---
Hospitalist Progress Note Date of Service Sep 20, 2016. (Belle Stoll ., BRENDAC) Subjective Pt evaluation today including: conversation w/ patient, physical exam, chart review, lab review, review of inpatient medication list Pain: None PO Intake: Tolerating PO diet Voiding: no voiding problems Patient reports feeling well postoperatively. He denies any complaints, including pain at the surgical site. He does state that he is cold, but otherwise denies any chills. The patient denies fevers, chills, sweats, chest pain, palpitations, claudication, cough, wheezing, shortness of breath, nausea, vomiting, abdominal pain, dysuria, hematuria, urinary retention, paralysis, weakness, numbness and tingling. Additional Comments: See HPI for pertinent positives and negatives. All other systems reviewed and negative. (Belle Stoll ., CINDI-C) Objective Vital Signs Date Time Temp Pulse Resp B/P Pulse Ox O2 Delivery O2 Flow Rate FiO2 09/20/16 11:17 36.6 72 18 119/72 99 09/20/16 10:27 36.6 76 16 131/71 99 Room Air 09/20/16 10:15 73 16 131/71 99 Room Air 09/20/16 08:14 36.6 76 20 125/78 97 Room Air 09/20/16 08:00 Room Air 09/20/16 04:00 36.3 78 16 119/73 100 Room Air 09/20/16 00:00 Room Air 09/19/16 23:54 36.5 72 16 104/63 99 Room Air 09/19/16 20:00 Room Air 09/19/16 19:21 36.7 100 20 126/85 93 Room Air 09/19/16 15:16 Room Air (Belle Stoll ., CINDI-C) Physical Exam General Appearance: WD/WN, no apparent distress Eyes: normal inspection, PERRL, EOMI ENT: normal ENT inspection, hearing grossly normal, pharynx normal Neck: supple, no JVD, trachea midline Respiratory/Chest: lungs clear, normal breath sounds, no respiratory distress Cardiovascular: regular rate, rhythm, no gallop, no murmur Abdomen: normal bowel sounds, non tender, soft Extremities: non-tender, normal inspection, no pedal edema Neurologic/Psychiatric: alert, normal mood/affect, oriented x 3 Skin: normal color, warm/dry, no rash (Belle Stoll ., PA-C) Laboratory Results Last 24 Hours Test 09/19/16 17:54 09/19/16 20:16 09/20/16 05:00 09/20/16 07:43 Bedside Glucose 92 mg/dl 99 mg/dl 77 mg/dl White Blood Count 3.19 K/uL Red Blood Count 3.19 M/uL Hemoglobin 10.2 g/dL Hematocrit 30.7 % Mean Corpuscular Volume 96.2 fL Mean Corpuscular Hemoglobin 32.0 pg Mean Corpuscular Hemoglobin Concent 33.2 g/dl Platelet Count 246 K/uL Mean Platelet Volume 10.2 fL Neutrophils (%) (Auto) 63.6 % Lymphocytes (%) (Auto) 18.8 % Monocytes (%) (Auto) 15.4 % Eosinophils (%) (Auto) 1.9 % Basophils (%) (Auto) 0.3 % Neutrophils # (Auto) 2.03 K/uL Lymphocytes # (Auto) 0.60 K/uL Monocytes # (Auto) 0.49 K/uL Eosinophils # (Auto) 0.06 K/uL Basophils # (Auto) 0.01 K/uL RDW Standard Deviation 48.4 fL RDW Coefficient of Variation 13.9 % Immature Granulocyte % (Auto) 0.0 % Immature Granulocyte # (Auto) 0.00 K/uL Creatinine 1.10 mg/dl Est Creatinine Clear Calc Drug Dose 60.6 ml/min Estimated GFR () 81.2 Estimated GFR (Non- 70.1 Test 09/20/16 10:00 09/20/16 11:15 Activated Partial Thromboplast Time 31.9 SECONDS Partial Thromboplastin Ratio 1.2 Bedside Glucose 82 mg/dl (Belle Stoll ., PA-C) Assessment and Plan (1) Prostate cancer metastatic to multiple sites (2) DVT (deep venous thrombosis) (3) Diabetes mellitus 65 y/o male with a history of metastatic prostate CA, COPD, DM, HTN,HLD, and a- fib who presented with pain and swelling in his right lower extremity. Doppler ultrasound showed extensive right lower extremity DVT in the right femoral vein. The patient recently returned from a trip to [place]. The patient takes warfarin 3 mg daily. INR was 2.2 on arrival. Acute RLE DVT, failed warfarin therapy -Admit to [facility] -Continue Lovenox 120 mg SC qd. Patient will need lifelong Lovenox due to malignancy. Currently no insurance. Nurse navigator and case management working on options. -Vascular surgery consultation, appreciate recs: Patient received IVC filter today, 09/20 -Patient will need lifelong AC due to hypercoagulable state. Lovenox drug of choice given malignancy. Pt does not have insurance. Spoke with Nurse Navigator, 1 month of Lovenox will cost $3000/month out of pocket. Pt previously established with [facility], has to reapply. They will not be able to provide Lovenox for 1 month. Will talk to pt.'s son regarding cost of out of pocket Lovenox vs warfarin to use until [facility] can provide. Metastatic prostate cancer -Previously treated with chemotherapy and radiation -Oncology consult, appreciate recs: Patient is hormone refractory, not a good candidate for further chemotherapy. -Palliative care consulted, appreciate recs Constipation--stable. Patient reports having a bowel movement yesterday -KUB shows moderate to severe constipation, nonobstructing bowel gas pattern. -Miralax bid COPD w/o exacerbation -No complaints, continue to monitor DM II--last hemoglobin A1c on record from 2014 -Insulin sliding scale -Check BSGs q ac and qhs -HgbA1c 6.3 on 09/19 A-fib--currently in sinus rhythm -Continue metoprolol tartrate 50 mg PO qam and 25 mg PO qpm HTN--stable -Continue lisinopril 10 mg PO qd HLD -Continue atorvastatin 10 mg PO qd Code Status -Level I, FULL RESUSCITATION STATUS This chart was completed in part utilizing [employer] Speech Voice Recognition software. Attempts were made to minimize the grammatical errors, random word insertions, pronoun errors and incomplete sentences. Any formal questions or concerns about the content, text or information contained within the body of this dictation should be directly addressed to the provider for clarification. (Belle Stoll ., PA-C) I agree with PA assessment and plan and have personally seen and examined pt myself Pt resting comfortably in bed Denies any concerns IVC filter to be placed today Hemodynamically stable Awaiting lovenox cost, may need to be on coumadin until [place] approved manager culinary will set up coag clinic f/u (Conner Thompson D.OAntolin)
--- NOTE | 2016-09-20 13:27 | DIAGNOSTIC IMAGING REPORT ---
DATE OF PROCEDURE: 09/20/2016 PREOPERATIVE DIAGNOSIS: Deep venous thrombosis, hypercoagulable state. POSTOPERATIVE DIAGNOSIS: Same. PROCEDURE: Insertion of inferior vena cava filter, femoral approach. SURGEON: Dr. Birch. ANESTHETIC: Local. PROCEDURE INDICATIONS: The patient is a 65-year-old gentleman with metastatic prostate cancer. He developed right lower extremity DVT. He is hypercoagulable due to his metastatic prostate cancer. He was started on Coumadin when he was in [place], he was not sure why. Due to hypercoagulable state from his extensive prostate metastatic disease we recommended a filter insertion. He understood the risks, options and benefits and agreed to have this procedure. DESCRIPTION OF PROCEDURE: The patient was taken to the angiogram suite placed in the supine position. After the right groin was prepped and draped in a sterile manner, local anesthetic was administered. Percutaneous puncture was made of the right common femoral vein. A 0.035 wire was inserted centrally. The puncture site was dilated and the filter sheath was inserted. The filter sheath was placed in the inferior vena cava and a venacavogram was performed showing the cava to be of normal size with no clot present. The outflow of the renal veins were identified. The filter was then inserted through the sheath, positioned in the infrarenal vena cava and deployed in an upright position without difficulty. Once this was done, the sheath was then pulled. Pressure was applied. Adequate hemostasis was then obtained. Dressings were then applied to the PICC puncture site. The patient left the angio suite in good condition and tolerated the procedure well.
[2016-09-20] MEDS ORDERED: WARFARIN SOD 5 MG TAB PO ONE (14:30)
--- NOTE | 2016-09-20 16:33 | Palliative Care Consultation ---
Consultation Date of Consultation: Sep 20, 2016. Requesting Physician: Dr. Escobar Attending Physician: Belle Stoll PA-C, Dr. Thompson Reason for Consultation: Goals of care History of Present Illness This 65 year old male patient presented to the ED a few days ago with RLE edema and pain. Was found to have DVT of right femoral vein. Was on Coumadin outpatient with INR of 2.2 on admission. Apparently he has failed Coumadin therapy in the past. This any has a significant history of atrial fibrillation, DM with neuropathy, and metastatic prostate cancer. Cancer first diagnosed in 1996- underwent prostatectomy, chemo and radiation. Had follow-up PSAs every three months for some time, but ended up forgetting to make appointments for lab work since he was in remission and was feeling so well. He was doing well until 2011 when he was having trouble urinating and found out that his cancer had returned, and had spread to his bones. Patient ended up having spinal cord compression with numbness/paralysis of lower extremities. He underwent radiation of the spine and regained function of his legs. He then went to [place] where he received chemo and radiation as well. He decided to come back to the [facility] to finish his treatment as this is where his family is now. Again , patient states he was doing fairly well with his cancer and treatment until this DVT developed, but he continues to feel well. Palliative care consulted to establish goals of care and provide support. I met with the patient in room 411. He is very pleasant-- awake, alert and oriented x4. He denies any pain or symptoms at all. States, "I feel very good. Very strong." Patient explained his entire story of the cancer diagnosis and treatment to me. He verbalizes understanding that hormonal therapy has not been successful and his PSA is very high. He said to me, "I choose not to have cancer in my mind. In my mind, I'm okay; because I feel okay." The most important things to him are being strong, being happy, and spending time with his family. 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 He states that being a boxer has made him feel very good and very strong , not only physically but also mentally. He wishes to receive whatever treatment he is able to do in order to prolong his life, as long as he is still able to enjoy it. He wants to remain a full code at this point, but did state that if he enters a vegetative state in which he is no longer able to interact with family, be strong, or be happy, that he would want to allow natural and for "God's plan to carry out." If/when therapy (if he is able to in fact restart the Xolfigo) fails or he begins to decline, he would be amenable to hospice services in the home. He has not had a chance to discuss these things with his son, but he did request my assistance in speaking with him. I encouraged the patient to keep an open dialogue with his family so that they know his wishes. Past Medical/Surgical History Medical History: Metastatic prostate CA, mets to bone COPD DM Pyelonephritis Emphysema Former smoker Hematuria NSTEMI Afib Anemia Surgical History: Prostatectomy Social History Smoking Status: Former Smoker History of Alcohol Use: No Drug Use: none Marital Status: Housing Status: lives with family Occupation Status: retired Review of Systems Constitutional: No weakness Respiratory: No dyspnea on exertion, No shortness of breath Cardiac: + edema (of RLE from DVT-- has improved), No chest pain Abdomen: No nausea, No pain, No vomiting Male : + slowing stream Neurologic: + numbness/tingling (of bilateral feet) Psychiatric: No anxiety, No depression symptoms Heme: + clotting problems (here with DVT) Allergies Coded Allergies: No Known Allergies (Unverified , 09/14/16) Medications Current Inpatient Medications Medications (Trade) Dose Ordered Sig/Derek Route Start Time Stop Time Status Last Admin Dose Admin Atorvastatin Calcium (Lipitor Tab) 10 mg HS PO 09/15/16 21:00 10/15/16 20:59 09/19/16 20:43 10 MG Insulin Glargine (Lantus Solostar Pen) 20 unit BID SC 09/15/16 08:00 10/15/16 08:59 09/19/16 20:43 20 UNIT Lisinopril (Zestril Tab) 10 mg DAILY PO 09/15/16 08:00 10/15/16 08:59 09/20/16 08:22 10 MG Metoprolol Tartrate (Lopressor Tab) 25 mg QPM PO 09/15/16 21:00 10/15/16 20:59 09/19/16 20:43 25 MG Metoprolol Tartrate (Lopressor Tab) 50 mg QAM PO 09/15/16 08:00 10/15/16 08:59 09/20/16 08:21 50 MG Oxycodone/ Acetaminophen (Percocet 5-325mg Tab) 1 tab Q4H PRN PO 09/15/16 05:15 09/29/16 05:14 09/20/16 11:22 1 TAB Acetaminophen (Tylenol Tab) 650 mg Q4H PRN PO 09/15/16 05:15 10/15/16 05:14 Al Hydrox/Mg Hydrox/Simethicone (Maalox Max Susp) 15 ml Q4H PRN PO 09/15/16 05:15 10/15/16 05:14 Magnesium Hydroxide (Milk Of Magnesia Susp) 30 ml Q6H PRN PO 09/15/16 05:15 10/15/16 05:14 09/17/16 21:20 30 ML Polyethylene (Miralax Powder Packet) 17 gm DAILY PRN PO 09/15/16 05:15 10/15/16 05:14 Zolpidem Tartrate (Ambien Tab) 5 mg HSZ PRN PO 09/15/16 05:15 10/15/16 05:14 09/20/16 00:23 5 MG Ondansetron HCl (Zofran Inj) 4 mg Q6H PRN IV 09/15/16 05:15 10/15/16 05:14 09/16/16 15:09 4 MG Insulin Aspart (novoLOG ASPART) SLIDING SCALE G... ACHS SC 09/15/16 06:30 10/15/16 06:59 09/15/16 13:46 1 UNITS Glucose (Glucose 40% Gel) 15-30 GRAMS 15 GRAMS... UD PRN PO 09/15/16 06:45 10/15/16 06:44 Glucose (Glucose Chew Tab) 4-8 Tablets 4 Tabl... UD PRN PO 09/15/16 06:45 10/15/16 06:44 Dextrose (Dextrose 50% 50ML Syringe) 25-50ML OF 50% DW IV FOR... UD PRN IV 09/15/16 06:45 10/15/16 06:44 Glucagon (Glucagon Inj) 1 mg UD PRN SQ 09/15/16 06:45 10/15/16 06:44 Enoxaparin Sodium (Lovenox Inj) 120 mg DAILY SQ 09/17/16 08:00 10/17/16 07:59 09/20/16 08:22 120 MG Polyethylene 17 gm 17 gm BID PO 09/18/16 20:00 10/18/16 19:59 09/19/16 20:39 17 GM Cefazolin Sodium (Ancef 2000mg/60 ml D5W) 60 ml @ 100 mls/hr PREOP IV 09/20/16 06:00 09/20/16 18:00 09/20/16 10:29 100 MLS/HR Physical Exam Date Time Temp Pulse Resp B/P Pulse Ox O2 Delivery O2 Flow Rate FiO2 09/20/16 16:00 Room Air 09/20/16 15:27 36.5 81 20 112/69 97 Room Air 09/20/16 12:18 36.5 72 18 107/72 98 Room Air 09/20/16 11:44 36.6 70 20 107/72 99 Room Air 09/20/16 11:17 36.6 72 18 119/72 99 09/20/16 10:27 36.6 76 16 131/71 99 Room Air 09/20/16 10:15 73 16 131/71 99 Room Air 09/20/16 08:14 36.6 76 20 125/78 97 Room Air 09/20/16 08:00 Room Air 09/20/16 04:00 36.3 78 16 119/73 100 Room Air 09/20/16 00:00 Room Air 09/19/16 23:54 36.5 72 16 104/63 99 Room Air 09/19/16 20:00 Room Air 09/19/16 19:21 36.7 100 20 126/85 93 Room Air General Appearance: no apparent distress ENT: hearing grossly normal Neck: no JVD Respiratory: lungs clear, no respiratory distress, no accessory muscle use, + pertinent finding (room air) Cardiovascular: regular rate, rhythm, no edema, + normal peripheral pulses Abdomen: normal bowel sounds, non tender, soft Neurologic/Psychiatric: alert, normal mood/affect, oriented x 3 Laboratory Results Last 24 Hours Test 09/19/16 17:54 09/19/16 20:16 09/20/16 05:00 09/20/16 07:43 Bedside Glucose 92 mg/dl 99 mg/dl 77 mg/dl White Blood Count 3.19 K/uL Red Blood Count 3.19 M/uL Hemoglobin 10.2 g/dL Hematocrit 30.7 % Mean Corpuscular Volume 96.2 fL Mean Corpuscular Hemoglobin 32.0 pg Mean Corpuscular Hemoglobin Concent 33.2 g/dl Platelet Count 246 K/uL Mean Platelet Volume 10.2 fL Neutrophils (%) (Auto) 63.6 % Lymphocytes (%) (Auto) 18.8 % Monocytes (%) (Auto) 15.4 % Eosinophils (%) (Auto) 1.9 % Basophils (%) (Auto) 0.3 % Neutrophils # (Auto) 2.03 K/uL Lymphocytes # (Auto) 0.60 K/uL Monocytes # (Auto) 0.49 K/uL Eosinophils # (Auto) 0.06 K/uL Basophils # (Auto) 0.01 K/uL RDW Standard Deviation 48.4 fL RDW Coefficient of Variation 13.9 % Immature Granulocyte % (Auto) 0.0 % Immature Granulocyte # (Auto) 0.00 K/uL Creatinine 1.10 mg/dl Est Creatinine Clear Calc Drug Dose 60.6 ml/min Estimated GFR () 81.2 Estimated GFR (Non- 70.1 Test 09/20/16 10:00 09/20/16 11:15 Activated Partial Thromboplast Time 31.9 SECONDS Partial Thromboplastin Ratio 1.2 Bedside Glucose 82 mg/dl Assessment & Plan Palliative Performance Scale: 50 % Problem list: DVT, RLE- s/p IVC filter today. Failed outpatient Coumadin therapy twice. Primary medical team working on options for Lovenox/Coumadin therapy for required lifelong anticoagulation. Metastatic prostate cancer, mets to spine- s/p chemo and radiation. ?Xolfigo therapy- Dr. Hayden Zimmerman following. Constipation COPD DM type 2 Goals of care (Z51.5) Palliative care plan: -Waiting for scans for staging and is hopeful to be able to restart Xolfigo. -Denies pain or other uncomfortable symptoms. -Goal is to be comfortable, happy, and be with his family. His , son, and daughter all live here in the [place]. His second son lives in [place] , but at the end of his work contract, he will also be moving to the [place]. He looks forward to this. -Patient is thinking about advance care planning, and is willing to talk about "Plan B" if/when therapy fails. He would like to be at home with hospice in this case. -Wishes to remain full code for now. I'm uncertain if patient fully understands this. He states he wants God's plan to play out, but also wants to be a full code and would want any/all heroic measures at this time. I tried to explain that these interventions could potentially leave him in a vegetative state or in a state of not being able to be strong, independent and enjoy life with his family. He seems to understand a little more, asked if I could continue this conversation. Thank you kindly for consulting me on this nice gentleman. I will follow as needed.
[2016-09-20] MEDS: METOPROLOL TARTRATE 25 MG TAB PO SCH (21:00)
[2016-09-20] MEDS: ATORVASTATIN 10 MG TAB PO SCH (21:12)
[2016-09-21] MEDS ORDERED: ENOXAPARIN 120 MG/0.8 ML SYR SQ SCH
[2016-09-21] MEDS: ZOLPIDEM TARTRATE 5 MG TAB PO PRN (01:37)
[2016-09-21] MEDS: OXYCODONE/ACETAMINOPHEN 5-325 TAB PO PRN ×3 (01:39→15:46)
[2016-09-21 06:17] LABS: HEMATOCRIT 31.5 % (42-52); MEAN CELL VOLUME 97.5 fL (80-100); MEAN CORPUSCULAR HEMOGLOBIN 31.6 pg (25-34); MEAN CORPUSCULAR HGB CONC 32.4 g/dl (32-36); MEAN PLATELET VOLUME 9.7 fL (7.4-10.4); PLATELET COUNT 250 K/uL (130-400); RED BLOOD COUNT 3.23 M/uL (4.7-6.1); WHITE BLOOD COUNT 2.99 K/uL (4.8-10.8)
[2016-09-21 06:28] LABS: INR 1.6 (0.9-1.1)
[2016-09-21] MEDS: INSULIN ASPART 100 UNITS/ML 3 ML PEN SC SCH ×3 (06:30→16:30)
[2016-09-21 06:45] VITALS: Ht 152.4 cm; Wt 83.5 kg
[2016-09-21] MEDS: LISINOPRIL 10 MG TAB PO SCH (07:43)
[2016-09-21] MEDS: METOPROLOL TARTRATE 50 MG TAB PO SCH (07:43)
[2016-09-21] MEDS: POLYETHYLENE (MIRALAX) 17 GM PACK PO SCH (07:43)
[2016-09-21] MEDS: ENOXAPARIN 120 MG/0.8 ML SYR SQ SCH (07:44)
[2016-09-21 08:09] VITALS: BP 107/70; PULSE 83; TEMP 36.8; O2SAT 96
[2016-09-21 08:16] LABS: PARTIAL THROMBOPLASTIN RATIO 1.1
[2016-09-21] MEDS: INSULIN GLARGINE SOLOSTAR 100 UNITS/ML 3 ML PEN SC SCH (08:41)
--- NOTE | 2016-09-21 10:30 | Medical Student: [facility] ---
Med Student Progress Note Date of Service Sep 21, 2016. Subjective Pt evaluation today including: conversation w/ patient, physical exam, lab review, review of studies 65 year old [place] male with metastatic prostate cancer currently POD#1 for IVC filter placement after a RLE DVT with INR of 2.2. Patient complained of right and left leg "numbness" last night. This sensation is not new for him and is no longer bothering him this morning. Denies chest pain, shortness of breath, nausea, vomiting, palpitations, and calf pain. He wants to know when he can leave. Review of Systems Cardiac: No chest pain, No palpitations Abdomen: No constipation, No diarrhea, No nausea, No pain, No vomiting Musculoskeletal: No calf pain Male : No dysuria, No incontinence Neurologic: + numbness/tingling (overnight in the left and right legs) Objective Vital Signs Date Time Temp Pulse Resp B/P Pulse Ox O2 Delivery O2 Flow Rate FiO2 09/21/16 08:09 36.8 83 20 107/70 96 Room Air 09/21/16 08:00 Room Air 09/21/16 00:00 Room Air 09/20/16 22:22 36.4 77 16 94/61 96 Room Air 09/20/16 21:09 84 94/60 09/20/16 21:00 Room Air 09/20/16 19:35 36.7 81 20 93/61 92 Room Air 09/20/16 16:00 Room Air 09/20/16 15:27 36.5 81 20 112/69 97 Room Air 09/20/16 12:18 36.5 72 18 107/72 98 Room Air 09/20/16 11:44 36.6 70 20 107/72 99 Room Air 09/20/16 11:17 36.6 72 18 119/72 99 09/20/16 10:27 36.6 76 16 131/71 99 Room Air Physical Exam General Appearance: no apparent distress, + obese ENT: hearing grossly normal Respiratory/Chest: chest non-tender, lungs clear, normal breath sounds, no respiratory distress, no accessory muscle use Cardiovascular: regular rate, rhythm, no murmur Abdomen: normal bowel sounds, non tender, soft, no organomegaly Extremities: + pedal edema (+1 bilaterally), + pertinent finding (right groin catheter site clean and dry) Neurologic/Psychiatric: alert, normal mood/affect, oriented x 3 Skin: normal color, warm/dry, no rash Laboratory Results Last 24 Hours Test 09/20/16 11:15 09/20/16 16:22 09/20/16 19:42 09/21/16 05:45 Bedside Glucose 82 mg/dl 99 mg/dl 109 mg/dl White Blood Count 2.99 K/uL Red Blood Count 3.23 M/uL Hemoglobin 10.2 g/dL Hematocrit 31.5 % Mean Corpuscular Volume 97.5 fL Mean Corpuscular Hemoglobin 31.6 pg Mean Corpuscular Hemoglobin Concent 32.4 g/dl RDW Standard Deviation 49.2 fL RDW Coefficient of Variation 13.9 % Platelet Count 250 K/uL Mean Platelet Volume 9.7 fL Prothrombin Time 17.0 SECONDS Prothromb Time International Ratio 1.6 Activated Partial Thromboplast Time 28.7 SECONDS Partial Thromboplastin Ratio 1.1 Test 09/21/16 07:56 Bedside Glucose 100 mg/dl Assessment and Plan Assessment and Plan: ASSESSMENT 65 year old [place] male with metastatic prostate cancer currently POD#1 for IVC filter placement after a RLE DVT with INR of 2.2. Feels "great" following his surgery and is ready to leave. Was seen by palliative care yesterday. Patient wishes to be at home with hospice care if his condition should get worse. PLAN 1) DVT secondary to metastatic prostate cancer. -POD#1 IVC filter placement by vascular surgery -Currently on lovenox 120mg SC daily -Has follow up appointment with anticoagulation clinic on 09/22 -Patient does not have insurance. Current estimate for daily lovenox is $3257 per month. Anticoagulation clinic wonders if his INR was truly therapeutic while he was in [place]. They are considering restarting him on Coumadin to decrease the cost. 2) Metastatic prostate cancer -Refractory to surgery, chemotherapy, radiation, and anti-androgen therapy./ -Hem/onco consult: Do not recommend additional chemotherapy. -Palliative care consult on 09/20: Patient would wish for hospice care at home if he should require assistance. 3) Constipation -Continue Miralax BID 4) COPD with no exacerbation -continue to monitor 5) Diabetes mellitus type 2 -most recent hemoglobin A1c was 6.3 (09/19/16) -currently on insulin sliding scale with BSG checjs q ac and q hs 6) atrial fibrillation -currently in normal sinus rhythm -continue metoprolol tartrate 50mg qam and 25mg q pm 7) Hypertension -Lisinopril 10mg 8) Hyperlipidemia -Atorvastatin 10mg 9) Code status -full code
[2016-09-21] MEDS ORDERED: MRLP17X PO (10:38)
[2016-09-21] MEDS ORDERED: CMD5 PO (10:38)
[2016-09-21] MEDS ORDERED: LVNIS120 SQ (10:38)
--- NOTE | 2016-09-21 10:41 | Discharge Instructions ---
Discharge Instructions Date of Service Sep 21, 2016. Admission Reason for Admission: DVT Discharge Discharge Diagnosis / Problem: DVT, prostate cancer Discharge Goals Goal(s): Decrease discomfort, Improve function, Increase independence, Improve disease control, Learn about illness, Diagnostic testing, Therapeutic intervention, Prevent Disease Progression Activity Recommendations Activity Limitations: resume your previous activity Exercise/Sports Limitations: none . Instructions / Follow-Up Instructions / Follow-Up Patient to be discharged home Patient will need to take lovenox injections once daily for 3 more days upon discharge Patient will be discharged home on coumadin 5 mg 1 pill daily Prescription also for miralax to take only as needed for constipation Prescriptions sent to pharmacy Patient to follow up with coagulation clinic as scheduled Patient will need to follow up with Dr Hayden Zimmerman in 1-2 weeks Patient to follow up with Dr Yepez in 1-2 weeks If worsening chest pain, shortness of breath, palpitations, please report to ER Current Hospital Diet Patient's current hospital diet: AHA Diet (Heart Healthy), Diabetes Type 2 Diet Discharge Diet Recommended Diet: Diabetes Type 2 Diet Procedures Procedures Performed: Insertion Of Inferior Vena Cava Filter, Right Femoral Approach, Fluoroscopy For Positioning Pending Studies Studies pending at discharge: no Laboratory Results Hemoglobin A1c Test 09/19/16 10:01 Range/Units Estimated Average Glucose 134 mg/dl Hemoglobin A1c 6.3 H 4.5-5.6 % Medical Emergencies . Who to Call and When: Medical Emergencies: If at any time you feel your situation is an emergency, please call 911 immediately. . Non-Emergent Contact Non-Emergency issues call your: Primary Care Provider Call Non-Emergent contact if: you have a fever, your pain is worsening . . "Provider Documentation" section prepared by Conner Thompson. . VTE Core Measure Inpt VTE Proph given/why not?: Enoxaparin (Lovenox)SQ, Warfarin (Coumadin)
[2016-09-21 10:53] VITALS: BP 107/70; PULSE 83; TEMP 36.8; O2SAT 96
--- NOTE | 2016-09-21 13:18 | Discharge Summary ---
Discharge Summary Date of Service Sep 21, 2016. Discharge Summary Admission Date: Sep 15, 2016 at 05:13 Discharge Date: Sep 21, 2016 Discharge Disposition: Home Principal Diagnosis: DVT, prostate cancer Immunizations: Have You Had Influenza Vaccine: Yes History of Tetanus Vaccine?: UNKNOWN History of Pneumococcal: No History of Hepatitis B Vaccine: No Consultations: Hematology/oncology Radiation oncology Medication Reconciliation New Medications: Warfarin Sod (Coumadin) 5 Mg Tab 5 MG PO DAILY for 30 Days, #30 TABS Enoxaparin (Lovenox) 120 Mg/0.8 Ml Inj 120 MG SQ DAILY for 3 Days, #3 VIAL Polyethylene (Miralax) 17 Gm Pow 17 GM PO DAILY PRN for Constipation, #30 PKT Continued Medications: Atorvastatin (Lipitor) 10 Mg Tab 10 MG PO HS, TAB Insulin Glargine (Lantus Solostar) 100 Unit/Ml Inj 20 UNITS SC BID Insulin Lispro (Human) (Humalog) 100 Unit/Ml Inj 5 ML SC AC Lisinopril (Zestril) 10 Mg Tab 10 MG PO DAILY, TAB Metoprolol Tartrate (Lopressor) (Lopressor) 25 Mg Tab 25 MG PO QPM, 3 Refills Metoprolol Tartrate (Lopressor) (Lopressor) 25 Mg Tab 50 MG PO QAM Oxycodone/Acetaminophen 5MG/325MG (Percocet 5MG/325MG) Tab 1 TABLETS PO Q4H PRN for Pain, TAB PAIN Polyethylene Glycol 3350 (Miralax) 1 Pow Pow 17 GM PO BID PRN for Constipation Discharge Exam Review of Systems: Constitutional: No chills, No fever Respiratory: No cough, No dyspnea on exertion, No shortness of breath, No sputum, No wheezing Cardiovascular: No chest pain, No orthopnea Abdomen: No nausea, No pain, No vomiting Musculoskeletal: No joint pain, No muscle pain Genitourinary - Male: No dysuria, No hematuria Neurologic: No paralysis, No weakness Physical Exam: General Appearance: WD/WN, no apparent distress Neck: supple, no adenopathy Respiratory/Chest: lungs clear, normal breath sounds Cardiovascular: no edema, no gallop Abdomen / GI: non tender, soft Neurologic/Psychiatric: alert, oriented x 3 Hospital Course (1) Prostate cancer metastatic to multiple sites (2) DVT (deep venous thrombosis) (3) Diabetes mellitus 65 y/o male with a history of metastatic prostate CA, COPD, DM, HTN,HLD, and a- fib who presented with pain and swelling in his right lower extremity. Doppler ultrasound showed extensive right lower extremity DVT in the right femoral vein. The patient recently returned from a trip to [place]. The patient takes warfarin 3 mg daily. INR was 2.2 on arrival. RLE DVT -Admitted to [facility] -Continue Lovenox 120 mg SC qd. Patient will need lifelong Lovenox due to malignancy. Currently no insurance. Nurse navigator and case management working on options. -Vascular surgery consultation, appreciate recs: Patient received IVC filter today, 09/20 -Patient will need lifelong AC due to hypercoagulable state. Lovenox drug of choice given malignancy. Pt does not have insurance therefore will utilize coumadin upon discharge with lovenonx bridge therapy for 5 days, and follow up with coag clinic for INR monitoring. Metastatic prostate cancer -Previously treated with chemotherapy and radiation -Oncology consult, appreciate recs: Patient is hormone refractory, not a good candidate for further chemotherapy. -Palliative care consulted, appreciate recs, will follow up with radiation oncology on discharge Constipation--stable. Patient reports having a bowel movement yesterday -KUB shows moderate to severe constipation, nonobstructing bowel gas pattern. -Miralax bid, cont on discharge COPD w/o exacerbation -No complaints, continue to monitor DM II--last hemoglobin A1c on record from 2014 -Insulin sliding scale -Check BSGs q ac and qhs -HgbA1c 6.3 on 09/19 A-fib--currently in sinus rhythm -Continue metoprolol tartrate 50 mg PO qam and 25 mg PO qpm HTN--stable -Continue lisinopril 10 mg PO qd HLD -Continue atorvastatin 10 mg PO qd Code Status -Level I, FULL RESUSCITATION STATUS Total Time Spent: Greater than 30 minutes This includes examination of the patient, discharge planning, medication reconciliation, and communication with other providers. Discharge Instructions Please refer to the electronic Patient Visit Report (Discharge Instructions) for additional information. Additional Copies To Eric Yepez M.D.
[2016-09-21] MEDS ORDERED: OXYC-57 PO (19:18)
[2016-09-22] MEDS ORDERED: ENOXAPARIN 120 MG/0.8 ML SYR SQ SCH (08:00)
[2016-10-04] MEDS ORDERED: WARF3TAB6 PO ×2 (08:52)
[2016-10-04] MEDS ORDERED: [UNRECOGNIZED DRUG - OTHER] PO (12:37)
[2016-10-04] MEDS ORDERED: CALC500C3 PO (12:37)
[2016-10-04] MEDS ORDERED: DULO60CA44 PO (12:37)
[2016-10-04] MEDS ORDERED: BICA50TA2 PO (12:37)
[2016-10-04] MEDS ORDERED: PRLSR20 PO (12:37)
[2016-10-04] MEDS ORDERED: [UNRECOGNIZED DRUG - OTHER] PO (12:37)
[2016-10-04] MEDS ORDERED: PREG1CAP70 PO (12:37)
== END 2016-09-21 18:48 | disposition home or self-care (01) | DRG 253 ==
LOC: ENRESERVTM → ENRESERVDT → C.EDB 22:58 → C.4E 09-15 05:13
PROVIDERS: ADMIT Internal Medicine; ATTEND Hospitalist
PROC: 06H03DZ Insertion of Intraluminal Device into Inferior Vena Cava, Percutaneous Approach (ICD-10-PCS; principal; 2016-09-20 14:30)
DX: I82.411 Acute embolism and thrombosis of right femoral vein (principal); C79.51 Secondary malignant neoplasm of bone; D68.59 Other primary thrombophilia; J44.9 Chronic obstructive pulmonary disease, unspecified; E11.9 Type 2 diabetes mellitus without complications; C61 Malignant neoplasm of prostate; E78.5 Hyperlipidemia, unspecified; I10 Essential (primary) hypertension; Z92.21 Personal history of antineoplastic chemotherapy; Z92.3 Personal history of irradiation; Z51.5 Encounter for palliative care; K59.00 Constipation, unspecified; E83.42 Hypomagnesemia; D64.9 Anemia, unspecified; I48.0 Paroxysmal atrial fibrillation; Z66 Do not resuscitate; Z87.891 Personal history of nicotine dependence; Z79.4 Long term (current) use of insulin

== ENCOUNTER → 2016-10-24 | Outpatient (CLI) | payer OTHER ==
[~2016-10-24] MED LIST changes: -ALBU1AER9 INH; -AMIT25TA9 PO; -ASPCH81X PO; -ATOR10TA82 PO; +BICA50TA2 PO; +CALC500C3 PO; -CLC100 PO; +DULO60CA44 PO; -FENT12DI3 TD; -FLUT0.15 INH; -LISI-461 PO; -LORA10TA51 PO; -METO25TA56 PO; +MRLP17X PO; +OPTIRAY 320 IV PRN; -OXYC-57 PO; -PRED1SUS3 OPR; +PREG1CAP70 PO; +PRLSR20 PO; -SENN-61 PO; -TIOTCAP INH; +WARF3TAB6 PO; +[UNRECOGNIZED DRUG - OTHER] PO; +[UNRECOGNIZED DRUG - OTHER] PO
--- NOTE | 2016-10-24 16:17 | DIAGNOSTIC IMAGING REPORT ---
CHEST CT WITH CONTRAST CT DOSE: 802.89 mGy.cm HISTORY: Prostate carcinoma PROSTATE CA, METASTATIC BONE DISEASE TECHNIQUE: Multiaxial CT images of the chest were performed following the intravenous administration of contrast. COMPARISON: 03/27/2015 FINDINGS: Findings of progressive mediastinal and hilar adenopathy. Pretracheal nodes now measure up to 1.8 cm. Subcarinal nodes measure to 2.0 cm with right hilar nodes 2.2 cm. Progressive. Retrocrural nodes now measure up to 2.70 cm. All shae dimensions are progressive. Lung parenchyma shows a nonspecific subtle interstitial reticular nodular change in both lung bases. Findings are nonspecific but potentially represent an early metastatic change. There are no consolidative infiltrates. Pulmonary apices are clear. Bony metastatic disease is felt to be generally stable to slightly progressive. This is considered widespread. IMPRESSION: 1. Widespread bony metastatic disease stable to only slightly progressive. 2. Mildly progressive mediastinal, hilar, and retrocrural adenopathy. 3. Reticular nodular changes to both lung bases potentially indicating early interstitial metastatic change. Electronically signed by: Sung Avalos M.D. 10/24/2016 4:15 PM Dictated Date/Time: 10/24/2016 4:09 PM
--- NOTE | 2016-10-24 16:23 | DIAGNOSTIC IMAGING REPORT ---
ABDOMEN AND PELVIS CT WITH IV AND ORAL CONTRAST CT DOSE: HISTORY: PROSTATE CA, METASTATIC BONE DISEASE TECHNIQUE: Multiaxial CT images of the abdomen and pelvis were performed following the use of intravenous and oral contrast. COMPARISON STUDY: Abdomen and pelvis CT 03/27/2015. FINDINGS: Progressive interstitial thickening and subpleural and parenchymal nodularity. This is better appreciated on the same day chest CT. Interval progression of the extensive osteoblastic metastatic disease. No hepatic or splenic masses. Cholelithiasis. The pancreas and adrenal glands are unremarkable. Retrocrural lymphadenopathy and lower thoracic paraspinal lymphadenopathy has progressed. Dominant retrocrural lymph node measures 1.7 cm, previous measuring 1.4 cm. An IVC filter is noted. Increase in size in the upper retroperitoneal lymphadenopathy. Dominant lymph node measures 1.6 cm, previous measuring 1.0 cm. No hydronephrosis. Atrophic left kidney. Bilateral renal cysts are again noted. Focal subcutaneous soft tissue density at the lateral left hip. This may be due to a soft tissue contusion. The bladder is unremarkable. The prostate gland appears surgically absent. No bowel wall thickening or obstruction. IMPRESSION: 1. Progressive osteoblastic metastatic disease. 2. Increase in size in the lower paraspinal, retrocrural, and upper retroperitoneal lymphadenopathy consistent with metastatic disease. 3. Progressive interstitial thickening and nodularity at the lung bases which may also represent metastatic disease. This is better appreciated on the same day chest CT. Electronically signed by: Landon Whittington M.D. 10/24/2016 4:21 PM Dictated Date/Time: 10/24/2016 4:13 PM
--- NOTE | 2016-10-24 17:00 | DIAGNOSTIC IMAGING REPORT ---
WHOLE BODY BONE SCAN HISTORY: Prostate carcinoma PROSTATE CA RADIOTRACER: 25.8 mCi Tc-99m MDP STUDY/IMAGES: Planar anterior and posterior whole body imaging was performed 3 hours following the intravenous administration of radiotracer. COMPARISON: 03/27/2015 FINDINGS: Mildly progressive bony metastatic change compared to the prior study. Diffuse uptake of the ribs and thoracic spine similar to slightly progressive from the prior study. Slight increase in sternal activity as well as bilateral humeral activity. Slight increase in activity of the tibia as well as fibula regions. Slight increase in activity involving the skull. IMPRESSION: Diffuse bony metastatic disease slightly progressive from the prior study Electronically signed by: Sung Avalos M.D. 10/24/2016 4:59 PM Dictated Date/Time: 10/24/2016 4:57 PM
== END | disposition home or self-care (01) ==
LOC: C.NUCL 13:03
PROVIDERS: ATTEND Physician Assistant Medical
DX: C61 Malignant neoplasm of prostate (principal); C79.51 Secondary malignant neoplasm of bone